=== PATIENT | male | born 1975 | race Caucasian/White ===

== ENCOUNTER 2016-08-11 12:43 | Inpatient (IN) ==
[2016-08-11] MEDS ORDERED: POTASSIUM CHLORIDE RIDER 10 MEQ in PREMIX 1 EACH IV PRN (13:16)
[2016-08-11] MEDS ORDERED: MAGNESIUM SULF RIDER 2 GM in PREMIX 1 EACH IV PRN (13:16)
[2016-08-11] MEDS ORDERED: ASPIRIN 325 MG TABLET PO ONE (13:16)
[2016-08-11] MEDS ORDERED: DIAZEPAM 5 MG TABLET PO ONE (13:16)
[2016-08-11] MEDS ORDERED: diphenhydrAMINE CAP 25 MG CAPSULE PO ONE (13:16)
[2016-08-11] MEDS ORDERED: DIAZEPAM 5 MG TABLET ONE (13:43)
[2016-08-11] MEDS ORDERED: diphenhydrAMINE CAP 25 MG CAPSULE ONE (13:43)
[2016-08-11] MEDS: SODIUM CHLORIDE 0.9% 1,000 ML IV SCH (13:46)
[2016-08-11 13:58] LABS: Basophils % 0.5 % (0.0-0.8); Eosinophils # 0.1 10*3/uL (0.0-0.87); Eosinophils % 1.2 % (0.00-10.9); Hemoglobin 14.8 GM/DL (14.0-18.0); Immature Granulocytes % 0.2 %; Immature Granulocytes Absolute 0.01 #; Lymphocytes # 1.5 10*3/uL (1.4-4.0); Lymphocytes % 25.4 % (21.2-54.2); Mean Corpuscular HGB Conc 33.6 GM/DL (32-36); Mean Corpuscular Hemoglobin 30 PG (27-34); Mean Corpuscular Volume 88.4 FL (87-102); Mean Platelet Volume 10.4 FL (9.6-12.0); Monocytes # 0.5 10*3/uL (0.11-0.8); Monocytes % 8.5 % (1.7-12.7); Neutrophils # 3.7 10*3/uL (1.4-7.4); Neutrophils % 64.2 % (38.7-73.9); Platelet Count 227 T/CUMM (130-400); Red Blood Count 4.98 MC/CUMM (3.8-5.5); Red Cell Distribution Width 13.5 % (9.3-17.3); White Blood Count 5.7 T/CUMM (4-12)
[2016-08-11 14:06] LABS: PT Patient Result 10.6 SECS
[2016-08-11 14:13] LABS: Calcium 8.8 MG/DL (8.5-10.1); Magnesium 2.2 MG/DL (1.8-2.4); Potassium 4.2 MMOL/L (3.5-5.1)
[2016-08-11] MEDS ORDERED: MIDAZOLAM 2 MG/2 ML VIAL ONE (14:29)
[2016-08-11] MEDS ORDERED: HYDROmorphone 2 MG/1 ML VIAL ONE (14:29)
[2016-08-11] MEDS ORDERED: LIDOCAINE 1% 20 ML VIAL ONE (14:29)
[2016-08-11] MEDS ORDERED: NITROGLYCERIN SL 0.4 MG TABLET SL PRN (15:29)
[2016-08-11] MEDS ORDERED: HYDROmorphone 2 MG/1 ML VIAL IV PRN (15:29)
[2016-08-11] MEDS ORDERED: ONDANSETRON 4 MG/2 ML VIAL IV PRN (15:29)
[2016-08-11] MEDS ORDERED: ZALEPLON 5 MG CAPSULE PO PRN (15:29)
--- NOTE | 2016-08-11 15:54 | Cardiac Catheterization ---
Date of Procedure:: 08/11/16 Post-op diagnosis: same Procedure: Procedures performed: 1. Left heart catheterization 2. Coronary angiography 3. Left ventriculography 4. Ascending aortogram 5. Right femoral arteriotomy closure with Angio-Seal device Brief clinical summary: Mr. Tipton 41-year-old with control hypertension who presented with at least 3 months of exertional angina and dyspnea on exertion with reduced ejection fraction noted at an outside hospital. Description of procedure: After obtaining informed consent, the right groin was prepped and draped in the usual sterile fashion. Next a short 6 [place] sheath was placed in the right femoral artery using a modified Seldinger technique, after the patient received IV sedation and local anesthetic. Next a JL4 catheter was advanced over a guidewire under fluoroscopic guidance, and was engaged to the left coronary artery after which angiography was performed in multiple views. This was then removed over a wire, and a JR4 catheter was advanced in similar fashion was engaged the right coronary artery after which angiography was performed in multiple views. Next a bent pigtail catheter was advanced into the left ventricle, where hemodynamic measurements were obtained, left ventriculography was performed. The pigtail was then pulled back above the aortic valve and ascending aortogram was performed I was able to visualize the sheath on a "carney down" shot which showed the sheath was inserted in the right common femoral artery in a vessel suitable for closure. Hemostasis was obtained with Angio-Seal device with no residual bleeding. He was transferred from the dental laboratory assistant in good condition without complication. Coronary angiography: Left main coronary artery is severely ectatic but without significant stenosis. The left anterior descending artery is also severely ectatic with a 95% complex mid stenosis and a large bifurcating first diagonal which has 90% stenosis and the largest subsegment. The diagonals also quite ectatic. There is a thin her second diagonal without significant disease. The LAD tapers and there is approximately 90% very distal LAD stenosis. The circumflex is occluded at the ostium and fills by left to left collaterals with apparently only 2 thin obtuse marginal branches being noted. Right coronary artery is the dominant vessel and is largest for extremity ectatic as well. It is a high takeoff of the vessel from the above the left cusp. There is a eccentric 70% mid stenosis. There is a fairly average PDA and first posterolateral with moderate irregularities. There is a larger somewhat ectatic PL2 branch which has 80-90% proximal stenosis. Left ventricular apical left ventricle appears to be borderline enlarged with mildly reduced overall ejection fraction of 40% with modest increased hypokinesis inferiorly. Ascending aortogram: The ascending aorta is perhaps slightly dilated but is anatomically unremarkable. There is only 1+ aortic regurgitation. Impression: 1. Mildly reduced overall LV systolic function with some increased inferior hypokinesis with overall ejection fraction is estimated to be 40% 2. Right dominant system 3. Extremely ectatic coronary arteries as detailed above with three-vessel disease as detailed above including but not limited to: A. 95% high mid LAD stenosis, and also 90% stenosis in the proximal portion of the large first diagonal branch, in discrete very distal 90% LAD stenosis B. Ostial circumflex occlusion with filling of the distal vessel via left to left collaterals (appears to be only 2 thin obtuse marginal branches) C. Extremely ectatic right coronary artery with high left takeoff, and 70% eccentric mid stenosis, as well as 80-90% proximal PL2 stenosis Recommendation discussion: I believe Mr. Chaudhari is best served with bypass surgery given his extremity ectatic vessels and his young age as well as his mildly reduced LV function. I discussed the case with Dr. Rutledge would make him to his service and tentatively will plan for surgery Sunday, as he is reviewed his study. I'll place him on high-dose Crestor, baby aspirin, and low-dose NADIA inhibitor and beta caryn therapy. Anesthesia: minimal conscious sedation Surgeon / Physician: Rc Wong Handle Sewer: other Estimated blood loss: minimal Specimens: none sent Condition: stable Disposition: floor - Medications / Follow-up
--- NOTE | 2016-08-11 16:11 | Cardiac Catheterization ---
Date of Procedure:: 08/11/16 Post-op diagnosis: same Anesthesia: minimal conscious sedation Surgeon / Physician: Rc Wong Sanitation Director: other Estimated blood loss: minimal Specimens: none sent Condition: stable Disposition: floor - Medications / Follow-up
[2016-08-11] MEDS: ASPIRIN CHEW 81 MG TABLET PO SCH (18:25)
[2016-08-11] MEDS: METOPROLOL SUCCINATE XL 25 MG TABLET PO SCH (18:25)
[2016-08-11] MEDS: LISINOPRIL 2.5 MG TABLET PO SCH (20:34)
[2016-08-11] MEDS: ROSUVASTATIN 20 MG TABLET PO SCH (20:34)
[2016-08-11] MEDS: FAMOTIDINE 20 MG TABLET PO SCH (20:35)
[2016-08-12] MEDS: SODIUM CHLORIDE 0.9% 1,000 ML IV SCH ×3 (00:37→10:49)
[2016-08-12 05:26] LABS: Basophils % 0.7 % (0.0-0.8); Eosinophils # 0.1 10*3/uL (0.0-0.87); Eosinophils % 1.3 % (0.00-10.9); Hematocrit 42.8 VOL% (42.0-52.0); Hemoglobin 14.6 GM/DL (14.0-18.0); Immature Granulocytes % 0.3 %; Immature Granulocytes Absolute 0.02 #; Lymphocytes # 1.6 10*3/uL (1.4-4.0); Lymphocytes % 26.1 % (21.2-54.2); Mean Corpuscular HGB Conc 34.1 GM/DL (32-36); Mean Corpuscular Hemoglobin 30 PG (27-34); Mean Corpuscular Volume 86.6 FL (87-102); Mean Platelet Volume 10.9 FL (9.6-12.0); Monocytes # 0.6 10*3/uL (0.11-0.8); Neutrophils # 3.8 10*3/uL (1.4-7.4); Neutrophils % 62.6 % (38.7-73.9); Platelet Count 205 T/CUMM (130-400); Red Blood Count 4.94 MC/CUMM (3.8-5.5); Red Cell Distribution Width 13.5 % (9.3-17.3); White Blood Count 6.1 T/CUMM (4-12)
[2016-08-12 05:57] LABS: Cholesterol 222 MG/DL (50-200); HDL Cholesterol 28 MG/DL (40-60); Risk Ratio 7.93; Triglycerides 172 MG/DL (2-150); VLDL CHOLESTEROL 34.4 MG/DL
[2016-08-12 06:00] LABS: Troponin I Only 0.129 NG/ML (0.00-0.045)
--- NOTE | 2016-08-12 08:39 | EKG Report ---
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
--- NOTE | 2016-08-12 08:40 | Cardiothoracic History & Phys ---
History of Present Illness Chief complaint: chest pain History of present illness: Mr. Cr is a 41 year old male who presented to Dr. Smiley for evaluation of chest discomfort which has been occurring with exertion and with increasing frequency. Mr. Cr underwent cardiac catheterization yesterday which demonstrated critical 3 vessel coronary disease with relatively well-preserved left ventricular function. He has been advised to have coronary bypass surgery and this is scheduled for 08/14/2015. Past medical history: Patient has a history of hypertension and a remote history of Hodgkin's lymphoma. Social history: Patient smokes cigarettes and drinks alcohol occasionally. Family history: Patient has a family history of diabetes mellitus and hypertension. Review of systems is noncontributory to the present illness. Physical examination: Patient is well-developed well-nourished white male in no acute distress. Examination of HEENT show the pupils are equal and react to light and extraocular motions are intact. The oropharynx is benign. Examination of the neck shows no bruits and there are no masses or thyromegaly. Examination chest is clear to percussion and auscultation. Examination of heart shows regular sinus rhythm and there are no murmurs. Examination of the abdomen shows that there are no masses or organomegaly and there is no tenderness. Examination extremities shows no cyanosis or edema. Neurological examination is grossly within normal limits. Assessment: Coronary artery disease. Plan: Coronary bypass surgery 08/14/2015. Home Medications Medication Instructions Recorded Confirmed Type Aspirin [Ecotrin] 81 mg PO DAILY 08/11/16 08/11/16 History Esomeprazole Magnesium [Nexium] 22.3 mg PO DAILY 08/11/16 08/11/16 History Levothyroxine Tab [Synthroid Tab] 50 mcg PO DAILY 08/11/16 08/11/16 History Lisinopril 20 mg PO DAILY 08/11/16 08/11/16 History [place]-3 Fatty Acids [Fish Oil 1,000 mg PO DAILY 08/11/16 08/11/16 History Concentrate] Tadalafil [Cialis] 5 mg PO DAILY 08/11/16 08/11/16 History Allergies Allergy/AdvReac Type Severity Reaction Status Date / Time No Known Allergies Allergy Verified 08/11/16 13:15 Medical,Surgical,& Family Hx - Medical History Cardio: History of: Hypertension Neurology: No history of: Seizures Endocrine: History of: Thyroid Disorder Gastrointestinal: History of: GERD Other: History of: Cancer - Surgical History Orthopedic Surgeries: Surgical HX of;: Orthopedic Surgery (RIGHT LEG SURGERY) - Social History Smoking Status: Never smoker Frequency of Alcohol Use: None Type of Drug Use: None Cardiology Physical Exam - Constitutional Vitals: Vital Signs Temp Pulse Resp BP Pulse Ox 98.2 F 64 20 149/90 98 08/12/16 08:00 08/12/16 08:00 08/12/16 08:00 08/12/16 08:00 08/12/16 08:00 Intake and Output 08/11/16 08/12/16 08/12/16 23:59 07:59 15:59 Intake Total 480 / 480 1120 / 1120 Output Total 350 / 350 Balance 480 / 480 770 / 770 Intake: IV 1000 / 1000 Ns 1,000 ml @ 100 mls/hr 1000 / 1000 IV .Q10H MONE Rx#: [id number] Oral 480 / 480 120 / 120 Output: Urine 350 / 350 Other: Voiding Method Toilet Urinal # Voids 2 Weight 96.162 kg Result/EKG - Labs CBC & BMP: 08/12/16 03:56 08/11/16 13:35 Labs: Laboratory Results - last 24 hr 08/11/16 08/11/16 08/11/16 13:35 13:35 13:35 WBC 5.7 RBC 4.98 Hgb 14.8 Hct 44.0 MCV 88.4 MCH 30 MCHC 33.6 RDW 13.5 Plt Count 227 MPV 10.4 Neut % (Auto) 64.2 Lymph % (Auto) 25.4 [place] % (Auto) 8.5 Eos % (Auto) 1.2 Baso % (Auto) 0.5 Neut # (Auto) 3.7 Lymph # (Auto) 1.5 [place] # (Auto) 0.5 Eos # (Auto) 0.1 Baso # (Auto) 0.0 Immature Gran % 0.2 Nucleated RBC % 0.0 Immature Gran # 0.01 Nucleated RBCs # 0.00 INR 1.0 PT Patient/Control Mix 10.6 Circ Anticoag PTT Sodium 143 Potassium 4.2 Chloride 108 H Carbon Dioxide 26 Anion Gap 13.2 BUN 14 Creatinine 1.10 GFR Calculation 106 BUN/Creatinine Ratio 12.00 Glucose 87 Calculated Osmolality 284.0 Calcium 8.8 Magnesium 2.2 Total Creatine Kinase CK-MB (CK-2) Troponin I Triglycerides Cholesterol LDL Cholesterol VLDL Cholesterol HDL Cholesterol Heart Disease Risk Ratio 08/11/16 08/12/16 08/12/16 13:35 03:56 03:56 WBC 6.1 RBC 4.94 Hgb 14.6 Hct 42.8 MCV 86.6 L MCH 30 MCHC 34.1 RDW 13.5 Plt Count 205 MPV 10.9 Neut % (Auto) 62.6 Lymph % (Auto) 26.1 [place] % (Auto) 9.0 Eos % (Auto) 1.3 Baso % (Auto) 0.7 Neut # (Auto) 3.8 Lymph # (Auto) 1.6 [place] # (Auto) 0.6 Eos # (Auto) 0.1 Baso # (Auto) 0.0 Immature Gran % 0.3 Nucleated RBC % 0.0 Immature Gran # 0.02 Nucleated RBCs # 0.00 INR PT Patient/Control Mix Circ Anticoag PTT 28.8 Sodium Potassium Chloride Carbon Dioxide Anion Gap BUN Creatinine GFR Calculation BUN/Creatinine Ratio Glucose Calculated Osmolality Calcium Magnesium Total Creatine Kinase 94 CK-MB (CK-2) < 1.0 Troponin I 0.129 H Triglycerides 172 H Cholesterol 222 H LDL Cholesterol 167.0 VLDL Cholesterol 34.4 HDL Cholesterol 28 L Heart Disease Risk Ratio 7.93
[2016-08-12] MEDS ORDERED: DEXTROSE 50% 25 GM/50 ML VIAL IV PRN (08:41)
[2016-08-12] MEDS ORDERED: GLUCAGON 1 MG VIAL IM PRN (08:41)
[2016-08-12] MEDS ORDERED: CHLORHEXIDINE 4% SOLN 118 ML BOTTLE TOP SCH (09:00)
[2016-08-12] MEDS ORDERED: SODIUM CHLORIDE 0.9% 1,000 ML IV SCH (09:00)
[2016-08-12] MEDS: ASPIRIN CHEW 81 MG TABLET PO SCH (09:27)
[2016-08-12] MEDS: LISINOPRIL 2.5 MG TABLET PO SCH ×2 (09:27→21:22)
[2016-08-12] MEDS: FAMOTIDINE 20 MG TABLET PO SCH ×2 (09:27→21:22)
[2016-08-12] MEDS: METOPROLOL SUCCINATE XL 25 MG TABLET PO SCH (09:28)
[2016-08-12] MEDS: CHLORHEXIDINE 0.12% ORAL RINSE 60 ML BOTTLE SWISH/SPIT SCH ×2 (09:28→21:21)
--- NOTE | 2016-08-12 09:38 | XRay Report ---
XR chest 2V Date: 08/12/2016 8:45 AM History: CAD Comparison: None Technique: PA and lateral chest Findings: The heart is normal in size. Minimal atelectasis at the lung bases with calcified granulomata/nodes. Unremarkable mediastinum and osseous structures. Impression: Old healed granulomatous disease with probable chronic scarring. Minimal atelectasis. PROCEDURE INTERPRETED AT [facility] DEPARTMENT OF RADIOLOGY Final Report Signed by: Dr. Cyndie Johnson
[2016-08-12 09:46] LABS: ABG HCO3 24.4 MMOL/L (20-26); ABG Oxygen Saturation 98.4 % (95-100); ABG PCO2 37.3 MM HG (35-48); ABG PH 7.419 (7.35-7.45); ABG TCO2 20.4 MMOL/L (23-27); Allen Test Positive; Pt O2 Delivery Device Room Air
[2016-08-12] MEDS: ROSUVASTATIN 20 MG TABLET PO SCH (21:22)
[2016-08-13 05:54] LABS: Albumin 3.4 G/DL (3.4-5.0); Bilirubin,Total 0.7 MG/DL (0.2-1.0); Calcium 8.7 MG/DL (8.5-10.1); Osmolality,Calculated 289.7 MOS/KG (273-304); Potassium 4.1 MMOL/L (3.5-5.1); Total Protein 6.6 G/DL (6.4-8.3)
--- NOTE | 2016-08-13 08:17 | Cardiothoracic Progress Note ---
Cardiothoracic Subjective Interval history: Patient is ready for bypass surgery Sunday morning. I will add low-dose tranxene for anxiety today. Exam (Progress Note) - Constitutional Vitals: Period Temp Pulse Resp BP Sys/Storm Pulse Ox Last 24 Hr 97.7 F-98 F 64-78 16-20 121-147/77-94 97-98 Result/EKG - Labs CBC & BMP: 08/12/16 03:56 08/13/16 04:16 Labs: Laboratory Results - last 24 hr 08/12/16 08/13/16 08/13/16 09:38 04:16 04:16 ABG pH 7.419 ABG pCO2 37.3 ABG pO2 104.0 H ABG HCO3 24.4 ABG Total CO2 20.4 L ABG O2 Saturation 98.4 ABG Base Excess 0.0 FiO2 21.00 Sodium 145 Potassium 4.1 Chloride 108 H Carbon Dioxide 26 Anion Gap 15.1 H BUN 17 Creatinine 1.20 GFR Calculation 96 BUN/Creatinine Ratio 14.00 Glucose 93 Calculated Osmolality 289.7 Calcium 8.7 Total Bilirubin 0.70 AST 10 ALT 25 Alkaline Phosphatase 127 H Total Protein 6.6 Albumin 3.4 Globulin 3.2 Albumin/Globulin Ratio 1.0 L Blood Type A POSITIVE Antibody Screen Negative Crossmatch See Detail 08/13/16 Unknown ABG pH ABG pCO2 ABG pO2 ABG HCO3 ABG Total CO2 ABG O2 Saturation ABG Base Excess FiO2 Sodium Potassium Chloride Carbon Dioxide Anion Gap BUN Creatinine GFR Calculation BUN/Creatinine Ratio Glucose Calculated Osmolality Calcium Total Bilirubin AST ALT Alkaline Phosphatase Total Protein Albumin Globulin Albumin/Globulin Ratio Blood Type A POSITIVE Antibody Screen Crossmatch Quality Measures - VTE Contraindication to Pharmacological VTE Prophylaxis: High Risk of Bleeding
[2016-08-13] MEDS ORDERED: CEFUROXIME INJ 1,500 MG in SODIUM CHLORIDE 0.9% 100 ML IV ONE (08:41)
[2016-08-13] MEDS: METOPROLOL SUCCINATE XL 25 MG TABLET PO SCH (08:42)
[2016-08-13] MEDS: ASPIRIN CHEW 81 MG TABLET PO SCH (08:43)
[2016-08-13] MEDS: CLORAZEPATE 3.75 MG TABLET PO SCH ×3 (08:43→21:21)
[2016-08-13] MEDS: LISINOPRIL 2.5 MG TABLET PO SCH ×2 (08:43→21:20)
[2016-08-13] MEDS: FAMOTIDINE 20 MG TABLET PO SCH ×2 (08:43→21:21)
[2016-08-13] MEDS: CHLORHEXIDINE 0.12% ORAL RINSE 60 ML BOTTLE SWISH/SPIT SCH ×2 (08:43→21:21)
[2016-08-13] MEDS: CHLORHEXIDINE 4% SOLN 118 ML BOTTLE TOP SCH ×2 (08:47→16:50)
[2016-08-13] MEDS ORDERED: ACETAMINOPHEN 325 MG TABLET PO PRN (12:32)
[2016-08-13] MEDS: ROSUVASTATIN 20 MG TABLET PO SCH (21:20)
[2016-08-14] MEDS: CHLORHEXIDINE 4% SOLN 118 ML BOTTLE TOP SCH (04:26)
[2016-08-14] MEDS ORDERED: PAPAVERINE 60 MG/2 ML VIAL ONE (04:43)
[2016-08-14] MEDS ORDERED: VANCOMYCIN 1,000 MG VIAL ONE (04:44)
[2016-08-14] MEDS ORDERED: PANTOPRAZOLE 40 MG TABLET PO ONE (05:30)
[2016-08-14] MEDS ORDERED: LORazepam 1 MG TABLET PO ONE (05:30)
[2016-08-14] MEDS ORDERED: CEFUROXIME INJ 1,500 MG in SODIUM CHLORIDE 0.9% 100 ML IV ONE (05:30)
[2016-08-14] MEDS ORDERED: VECURONIUM 10 MG VIAL IV ONE (06:42)
[2016-08-14] MEDS ORDERED: PHENYLEPHRINE DRIP 20 MG/250 ML PREMIX IV ONE (06:42)
[2016-08-14] MEDS ORDERED: NITROGLYCERIN DRIP 50 MG/250 ML BOTTLE IV ONE (06:42)
[2016-08-14] MEDS ORDERED: MINERAL OIL/PETROLATUM OPH OINT 3.5 GM TUBE ONE (06:42)
[2016-08-14] MEDS ORDERED: HEPARIN/NACL 0.9% 2 UNITS/ML 500 ML IV ONE (06:42)
[2016-08-14 07:41] LABS: ABG Base Excess -1.8 MMOL/L (-2.5-2.5); ABG HCO3 22.9 MMOL/L (20-26); ABG PH 7.409 (7.35-7.45); ABG TCO2 19.2 MMOL/L (23-27); Glucose Heart Surgery 107 MG/DL (74-106); Hematocrit Heart Surgery 41.7 PERCENT (42-52); Hemoglobin Heart Surgery 13.6 G/DL (14.0-18.0); Ionized Calcium Arterial 1.14 MMOL/L (1.21-1.46); PH Patient Temp Arterial 7.409; Patient Temperature 37 CELCIUS; Potassium Heart/CVR 3.9 MMOL/L (3.5-5.1); Sodium Heart/CVR 140 MMOL/L (135-145)
[2016-08-14 07:46] LABS: Apearance,Urine CLEAR (Clear); Bilirubin,Urine Negative (Negative); Blood, Urine Negative (Negative); Glucose,Urine (UA) Negative (Negative); Hyaline Casts,Urine 3 /LPF (0-3); Ketones,Urine Negative (Negative); Mucus,Urine Occasional /LPF (Occasional); Nitrite,Urine Negative (Negative); Protein,Urine Negative; RBC,Urine 1 /HPF (0-4); Urine Color Yellow (Yellow); Urine Urobilinogen < 2.0 EU/DL (0.2-1.0); WBC,Urine <1 /HPF (0-6)
--- NOTE | 2016-08-14 08:07 | Anesthesia ---
Anesthesia Procedures - Central Venous Insert Monitors Applied: pulse oximetry, EKG, BP cuff, oxygen via MSBT: pulse oximetry, EKG, BP cuff, oxygen via Procedure: after sterile technique was performed as outlined above, , ultrasound guidance was used to identify vessel, 18G introducer needle was passed into vessel under direct visualizatio, triple lumen catheter was passed over guidewire without difficulty, catheter sutured into place and the ports flushed with NS/hepflush, sterlie dressing applied including the antibiotic disc , vital signs were stable throughout procedure, no apparent complications were noted Ultrasound used: identify patency vessel, visualize needle entry to vessel Vein Cannulated: right internal juglar
--- NOTE | 2016-08-14 08:08 | Anesthesia ---
Anesthesia Procedures - Arterial Line Consent obtained arterial line: written consent Time out performed arterial line: Yes Size (Gauge): 20 Technique used arterial line: guide wire technique Post-Procedure: line sutured into place, dry sterile dressing placed Patient tolerated procedure arterial line: well Complications art line: none Site: radial (right radial, dr Elizabeth)
[2016-08-14 08:49] LABS: Hematocrit Heart Surgery 32.9 PERCENT (42-52); Hemoglobin Heart Surgery 10.7 G/DL (14.0-18.0); PCO2 Patient Temp Venous 35.8 MM HG; PH Patient Temp Venous 7.426; Potassium Heart/CVR 5.2 MMOL/L (3.5-5.1); VBG Base Excess -0.5 MEQ/L (0-4); VBG HCO3 23.7 MEQ/L (24-28); VBG Oxygen Saturation 78.8 %; VBG PCO2 41.4 MMHG (41-51); VBG PH 7.382; VBG PO2 43.2 MMHG (17-40)
[2016-08-14] MEDS ORDERED: SODIUM CHLORIDE 0.9% 1,000 ML IV SCH (09:00)
[2016-08-14 09:19] LABS: Hematocrit Heart Surgery 35.4 PERCENT (42-52); Hemoglobin Heart Surgery 11.5 G/DL (14.0-18.0); PCO2 Patient Temp Venous 34.8 MM HG; PH Patient Temp Venous 7.435; PO2 Patient Temp Venous 35.8 MM HG; VBG Base Excess -0.4 MEQ/L (0-4); VBG HCO3 23.8 MEQ/L (24-28); VBG Oxygen Saturation 82.7 %; VBG PCO2 42.2 MMHG (41-51); VBG PH 7.377; VBG PO2 47.2 MMHG (17-40)
[2016-08-14 09:20] LABS: Potassium Heart/CVR 6.6 MMOL/L (3.5-5.1)
[2016-08-14] MEDS ORDERED: SODIUM BICARBONATE 50 MEQ/50 ML VIAL IV ONE ×2 (09:50→10:28)
[2016-08-14] MEDS ORDERED: NITROPRUSSIDE 50 MG/2 ML VIAL ONE (09:50)
[2016-08-14] MEDS ORDERED: PHENYLEPHRINE DRIP 40 MG/250 ML PREMIX IV ONE (09:50)
[2016-08-14] MEDS ORDERED: CALCIUM CHLORIDE 1,000 MG/10 ML SYRINGE IV ONE (09:50)
[2016-08-14] MEDS ORDERED: POTASSIUM CHLORIDE RIDER 100 ML IV ONE (09:50)
[2016-08-14] MEDS ORDERED: ALBUMIN 5% 12.5 GM/250 ML VIAL IV ONE (09:51)
[2016-08-14 09:54] LABS: Hemoglobin Heart Surgery 12.2 G/DL (14.0-18.0); PCO2 Patient Temp Venous 36.7 MM HG; PH Patient Temp Venous 7.432; PO2 Patient Temp Venous 41.8 MM HG; VBG Base Excess -0.2 MEQ/L (0-4); VBG HCO3 24.1 MEQ/L (24-28); VBG Oxygen Saturation 79.8 %; VBG PCO2 38.3 MMHG (41-51); VBG PH 7.417; VBG PO2 44.9 MMHG (17-40)
[2016-08-14 09:56] LABS: Potassium Heart/CVR 6.5 MMOL/L (3.5-5.1)
[2016-08-14] MEDS ORDERED: ALBUMIN 25% 25 GM/100 ML VIAL IV ONE (10:28)
[2016-08-14] MEDS ORDERED: PROTAMINE SULFATE 250 MG/25 ML VIAL IV ONE (10:28)
[2016-08-14] MEDS ORDERED: DEXTROSE 5% KCL 20 MEQ 20 MEQ/1,000 ML BAG IV ONE (10:28)
[2016-08-14] MEDS ORDERED: HEPARIN 10,000 UNIT/10 ML VIAL ONE (10:28)
[2016-08-14] MEDS ORDERED: MAGNESIUM SULFATE 1 GM/2 ML VIAL ONE (10:28)
[2016-08-14] MEDS ORDERED: methylPREDNISolone SOD SUC 1,000 MG/8 ML VIAL ONE (10:28)
[2016-08-14] MEDS ORDERED: FUROSEMIDE 20 MG/2 ML VIAL ONE (10:29)
[2016-08-14] MEDS ORDERED: POTASSIUM CHLORIDE 20 MEQ/10 ML VIAL ONE (10:29)
[2016-08-14] MEDS ORDERED: MANNITOL 12.5 GM/50 ML VIAL IV ONE (10:29)
[2016-08-14] MEDS ORDERED: PROTAMINE SULFATE 50 MG/5 ML VIAL IV ONE ×3 (10:29→11:41)
--- NOTE | 2016-08-14 10:35 | Anesthesia ---
Anesthesia Procedures - Arterial Line Consent obtained arterial line: written consent Time out performed arterial line: Yes Size (Gauge): 20 Technique used arterial line: guide wire technique Post-Procedure: line sutured into place Patient tolerated procedure arterial line: well Complications art line: none Site: right
[2016-08-14 10:41] LABS: ABG Base Excess -2.9 MMOL/L (-2.5-2.5); ABG Oxygen Saturation 97.8 % (95-100); ABG PCO2 38.9 MM HG (35-48); ABG PH 7.363 (7.35-7.45); ABG PO2 99.5 MM HG (80-95); ABG TCO2 19.7 MMOL/L (23-27); Glucose Heart Surgery 149 MG/DL (74-106); Hematocrit Heart Surgery 36.8 PERCENT (42-52); PCO2 Patient Temp Arterial 38.9 MMHG; PH Patient Temp Arterial 7.363; PO2 Patient Temp Arterial 99.5 MM HG; Patient Temperature 37 CELCIUS; Potassium Heart/CVR 4.2 MMOL/L (3.5-5.1); Sodium Heart/CVR 138 MMOL/L (135-145)
[2016-08-14] MEDS ORDERED: DEXTROSE 50% 25 GM/50 ML VIAL IV PRN ×2 (11:29)
[2016-08-14] MEDS ORDERED: MAGNESIUM SULF RIDER 4 GM in PREMIX 1 EACH IV PRN (11:29)
[2016-08-14] MEDS ORDERED: NITROPRUSSIDE 100 MG in DEXTROSE 5% 250 ML IV PRN (11:29)
[2016-08-14] MEDS ORDERED: ONDANSETRON 4 MG/2 ML VIAL IV PRN (11:29)
[2016-08-14] MEDS ORDERED: PHENYLEPHRINE DRIP 40 MG/250 ML PREMIX IV PRN (11:29)
[2016-08-14] MEDS ORDERED: MAGNESIUM SULF RIDER 2 GM in PREMIX 1 EACH IV PRN (11:29)
[2016-08-14] MEDS ORDERED: VECURONIUM 10 MG VIAL IV PRN ×2 (11:29)
[2016-08-14] MEDS ORDERED: POTASSIUM CHLORIDE RIDER 10 MEQ in PREMIX 1 EACH IV PRN (11:29)
[2016-08-14] MEDS ORDERED: MIDAZOLAM 2 MG/2 ML VIAL IV PRN (11:29)
[2016-08-14] MEDS ORDERED: LACTATED RINGERS 250 ML IV PRN (11:29)
[2016-08-14] MEDS ORDERED: INSULIN REGULAR 100 UNIT/ML IV ONE (11:29)
[2016-08-14] MEDS ORDERED: ACETAMINOPHEN 650 MG SUPP RECTAL PRN (11:29)
[2016-08-14] MEDS ORDERED: MORPHINE 10 MG/1 ML VIAL IV PRN (11:29)
[2016-08-14] MEDS ORDERED: INSULIN REGULAR 100 UNIT/ML IV PRN (11:29)
[2016-08-14] MEDS ORDERED: MIDAZOLAM 10 MG/2 ML VIAL IV PRN (11:29)
[2016-08-14] MEDS ORDERED: CALCIUM CHLORIDE 1,000 MG/10 ML SYRINGE IV PRN (11:29)
[2016-08-14] MEDS ORDERED: MORPHINE 2 MG/1 ML SYRINGE IV PRN (11:29)
[2016-08-14] MEDS ORDERED: INSULIN REGULAR DRIP 100 ML IV SCH (11:30)
[2016-08-14] MEDS ORDERED: SODIUM CHLORIDE 0.45% 1,000 ML IV SCH ×2 (11:30)
[2016-08-14] MEDS ORDERED: SUFentanil 250 MCG/5 ML AMP ONE (11:35)
[2016-08-14] MEDS ORDERED: SEVOFLURANE 1 UNIT/15 MINUTE INH ONE (11:35)
[2016-08-14] MEDS ORDERED: AMINOCAPROIC ACID 5,000 MG/20 ML VIAL IV ONE (11:36)
--- NOTE | 2016-08-14 11:36 | Operative Note ---
Date of procedure: 08/14/16 Pre-op diagnosis: coronary artery disease Post-op diagnosis: same Procedure: Procedure: Coronary bypass grafting 4 with the left internal mammary grafted anterior descending coronary artery and saphenous vein grafts to the diagonal circumflex marginal and right coronary arteries. Findings: Patient is a 41-year-old man with substernal chest discomfort and was found to have critical 3 vessel coronary disease at cardiac catheterization. The time of surgery left ventricular function was noted to be essentially within normal limits and grafts were placed to the above-noted vessels with saphenous vein grafts used for the diagonal circumflex marginal and right coronary arteries and an internal mammary graft to the anterior descending coronary artery. All distal vessels were of adequate size and showed moderate disease at the site of the anastomoses. Patient tolerated the procedure well was returned recovery in satisfactory condition. Procedure: Patient was brought to the operating room placed on the operating table in the supine position. After satisfactory induction of general anesthesia the greater saphenous vein was harvested from each lower leg and prepared as an arterial graft. Incisions in the leg were closed with 3-0 subcutaneous Monopril and 3-0 subcuticular Monocryl. A standard sternotomy incision was also made and the sternum was divided and the heart suspended in a pericardial cradle. Left internal mammary artery was dissected free and prepared as an arterial graft. Patient was prepared for cardiopulmonary bypass with systemic heparinization and cannulation of the ascending aorta and right atrium. Cardiopulmonary bypass was begun and the aorta was crossclamped and the heart arrested with cardioplegia solution injected into the aortic root. Heart was protected during the period of crossclamping with topical saline slush. Distal anastomoses were constructed as noted above. Following the completion of these anastomoses the aorta was unclamped reestablished and cardiac action. Proximal anastomoses were constructed between the ascending aorta and the inflow and so the saphenous vein graft using 6-0 Prolene. Following completion of these anastomoses the patient was weaned from cardiopulmonary bypass without difficulty and heparin effect reversed with protamine and decannulation carried out with the defects in the ascending aorta and right atrium closed with 3-0 Prolene. The operative field was inspected for hemostasis and when this was considered adequate incision was closed with interrupted stainless steel wire and the sternum 0 Monopril and the presternal fascia and 3-0 Monocryl in the subcuticular position in the skin. Chest tubes were left in the left hemithorax and 2 chest tubes left in the anterior mediastinum and all were brought out through separate stab incisions. Sterile dressings were applied and the patient was returned recovery in satisfactory condition. Surgeon / Physician: Waylon Rutledge Estimated blood loss: other (unable to determine because of cardiopulmonary bypass) Condition: stable Disposition: ICU Results - Labs CBC & BMP: 08/14/16 10:38 08/13/16 04:16 Discharge Plan - Discharge Medications No Action Esomeprazole Magnesium [Nexium] 22.3 mg PO DAILY [place]-3 Fatty Acids [Fish Oil Concentrate] 1,000 mg PO DAILY Tadalafil [Cialis] 5 mg PO DAILY Lisinopril 20 mg PO DAILY Aspirin [Ecotrin] 81 mg PO DAILY Levothyroxine Tab [Synthroid Tab] 50 mcg PO DAILY - Follow Up or Referral - Forms/Instructions
[2016-08-14 11:48] LABS: ABG Base Excess -1.6 MMOL/L (-2.5-2.5); ABG HCO3 23.1 MMOL/L (20-26); ABG Oxygen Saturation 98.2 % (95-100); ABG PCO2 33.9 MM HG (35-48); ABG PH 7.423 (7.35-7.45); ABG TCO2 19.2 MMOL/L (23-27); Basophils % 0.2 % (0.0-0.8); Eosinophils % 0.2 % (0.00-10.9); Glucose Heart Surgery 126 MG/DL (74-106); Hematocrit 39.6 VOL% (42.0-52.0); Hematocrit Heart Surgery 41.1 PERCENT (42-52); Hemoglobin 13.2 GM/DL (14.0-18.0); Hemoglobin Heart Surgery 13.4 G/DL (14.0-18.0); Immature Granulocytes % 0.6 %; Immature Granulocytes Absolute 0.08 #; Lymphocytes # 0.8 10*3/uL (1.4-4.0); Lymphocytes % 5.9 % (21.2-54.2); Mean Corpuscular HGB Conc 33.3 GM/DL (32-36); Mean Corpuscular Hemoglobin 29 PG (27-34); Mean Corpuscular Volume 88.2 FL (87-102); Monocytes # 0.7 10*3/uL (0.11-0.8); Monocytes % 5.7 % (1.7-12.7); Neutrophils # 11.2 10*3/uL (1.4-7.4); Neutrophils % 87.4 % (38.7-73.9); Platelet Count 166 T/CUMM (130-400); Potassium Heart/CVR 3.8 MMOL/L (3.5-5.1); Red Blood Count 4.49 MC/CUMM (3.8-5.5); Red Cell Distribution Width 13.4 % (9.3-17.3); White Blood Count 12.8 T/CUMM (4-12)
[2016-08-14 11:57] LABS: INR 1.1; PT Patient Result 11.6 SECS; Partial Thromboplastin Time 30.1 SECS (0-40)
[2016-08-14] MEDS: POTASSIUM CHLORIDE RIDER 20 MEQ in PREMIX 1 EACH IV PRN (12:00)
[2016-08-14] MEDS: LACTATED RINGERS 1,000 ML IV PRN ×3 (12:15→15:53)
[2016-08-14 12:20] LABS: Albumin 3.3 G/DL (3.4-5.0); Magnesium 2.6 MG/DL (1.8-2.4); Osmolality,Calculated 296.3 MOS/KG (273-304); Total Protein 5.9 G/DL (6.4-8.3)
[2016-08-14 12:41] LABS: CKMB % 8.4 %
[2016-08-14 12:45] LABS: Troponin I Only 7.31 NG/ML (0.00-0.045)
--- NOTE | 2016-08-14 12:54 | XRay Report ---
XR chest 1V portable Indication: Line placement. Chest one view: Comparison 2 days ago. Endotracheal tube terminates 3 cm cephalad of the monika. Mediastinal and left basilar chest tubes, [place] catheter tip projecting over the right pulmonary artery, and NG tube are now in the [id number]. Heart size is normal. Atelectasis of the perihilar lungs noted. No pneumothorax. Impression: Lines and tubes as described. PROCEDURE INTERPRETED AT [facility] DEPARTMENT OF RADIOLOGY Final Report Signed by: Gordon Calvillo M.D.
[2016-08-14] MEDS: ALBUMIN 5% 12.5 GM in PREMIX 1 EACH IV PRN ×5 (12:55→20:45)
[2016-08-14] MEDS: KETOROLAC 30 MG/1 ML VIAL IV SCH ×3 (12:58→23:48)
[2016-08-14 13:56] LABS: ABG Base Excess -2.2 MMOL/L (-2.5-2.5); ABG HCO3 22.6 MMOL/L (20-26); ABG Oxygen Saturation 98.7 % (95-100); ABG PCO2 32.8 MM HG (35-48); ABG PH 7.423 (7.35-7.45); ABG TCO2 18.8 MMOL/L (23-27); Glucose Heart Surgery 157 MG/DL (74-106); Hematocrit Heart Surgery 38.5 PERCENT (42-52); Hemoglobin Heart Surgery 12.5 G/DL (14.0-18.0); Potassium Heart/CVR 4.6 MMOL/L (3.5-5.1)
[2016-08-14 16:32] LABS: ABG Base Excess -1.1 MMOL/L (-2.5-2.5); ABG HCO3 22.7 MMOL/L (20-26); ABG Oxygen Saturation 96.7 % (95-100); ABG PCO2 34.8 MM HG (35-48); ABG PH 7.432 (7.35-7.45); ABG PO2 93.4 MM HG (80-95); ABG TCO2 23.8 MMOL/L (23-27); Glucose Heart Surgery 166 MG/DL (74-106); Hemoglobin Heart Surgery 12.5 G/DL (14.0-18.0); Potassium Heart/CVR 4.5 MMOL/L (3.5-5.1)
[2016-08-14] MEDS: ASPIRIN CHEW 81 MG TABLET PO SCH (16:44)
[2016-08-14] MEDS: METOPROLOL SUCCINATE XL 25 MG TABLET PO SCH (16:45)
[2016-08-14] MEDS: CHLORHEXIDINE 0.12% ORAL RINSE 60 ML BOTTLE SWISH/SPIT SCH ×2 (16:45→21:21)
[2016-08-14] MEDS: LISINOPRIL 2.5 MG TABLET PO SCH (16:45)
[2016-08-14] MEDS: CLORAZEPATE 3.75 MG TABLET PO SCH (16:45)
[2016-08-14] MEDS: FAMOTIDINE 20 MG TABLET PO SCH (16:46)
[2016-08-14 18:30] LABS: ABG Base Excess -2.7 MMOL/L (-2.5-2.5); ABG HCO3 22.2 MMOL/L (20-26); ABG Oxygen Saturation 98.9 % (95-100); ABG PCO2 35.5 MM HG (35-48); ABG PH 7.393 (7.35-7.45); ABG TCO2 19.4 MMOL/L (23-27); Glucose Heart Surgery 168 MG/DL (74-106); Hematocrit Heart Surgery 34.9 PERCENT (42-52); Hemoglobin Heart Surgery 11.3 G/DL (14.0-18.0); Potassium Heart/CVR 4.4 MMOL/L (3.5-5.1)
[2016-08-14] MEDS: CEFUROXIME INJ 1,500 MG in SODIUM CHLORIDE 0.9% 100 ML IV SCH (19:11)
[2016-08-14 19:40] LABS: ABG Base Excess -4.1 MMOL/L (-2.5-2.5); ABG Oxygen Saturation 98.1 % (95-100); ABG PCO2 47.1 MM HG (35-48); ABG PH 7.291 (7.35-7.45); ABG TCO2 20.5 MMOL/L (23-27); Glucose Heart Surgery 179 MG/DL (74-106); Hematocrit Heart Surgery 36.2 PERCENT (42-52); Hemoglobin Heart Surgery 11.7 G/DL (14.0-18.0); Potassium Heart/CVR 4.2 MMOL/L (3.5-5.1)
[2016-08-14 20:23] LABS: CKMB % 4.6 %
[2016-08-14 20:27] LABS: Troponin I Only 12.1 NG/ML (0.00-0.045)
[2016-08-14] MEDS ORDERED: FUROSEMIDE 40 MG/4 ML VIAL IV ONE (21:47)
[2016-08-15 01:00] LABS: ABG HCO3 22.7 MMOL/L (20-26); ABG Oxygen Saturation 97.5 % (95-100); ABG PCO2 46.8 MM HG (35-48); ABG PH 7.323 (7.35-7.45); ABG PO2 94.6 MM HG (80-95); ABG TCO2 21.9 MMOL/L (23-27); Glucose Heart Surgery 142 MG/DL (74-106); Hematocrit Heart Surgery 35.2 PERCENT (42-52); Hemoglobin Heart Surgery 11.4 G/DL (14.0-18.0); Potassium Heart/CVR 4.1 MMOL/L (3.5-5.1)
[2016-08-15] MEDS: POTASSIUM CHLORIDE RIDER 20 MEQ in PREMIX 1 EACH IV PRN ×2 (01:15→04:51)
[2016-08-15 04:20] LABS: ABG HCO3 23.5 MMOL/L (20-26); ABG PCO2 44.4 MM HG (35-48); ABG PH 7.353 (7.35-7.45); ABG PO2 82.1 MM HG (80-95); ABG TCO2 22.3 MMOL/L (23-27); Glucose Heart Surgery 123 MG/DL (74-106); Hematocrit Heart Surgery 33.5 PERCENT (42-52); Hemoglobin Heart Surgery 10.9 G/DL (14.0-18.0); Potassium Heart/CVR 4.2 MMOL/L (3.5-5.1)
[2016-08-15 04:29] LABS: Basophils % 0.1 % (0.0-0.8); Hematocrit 32.4 VOL% (42.0-52.0); Hemoglobin 10.7 GM/DL (14.0-18.0); Immature Granulocytes % 0.6 %; Immature Granulocytes Absolute 0.09 #; Lymphocytes # 0.6 10*3/uL (1.4-4.0); Lymphocytes % 4.2 % (21.2-54.2); Mean Corpuscular Hemoglobin 30 PG (27-34); Mean Corpuscular Volume 90.3 FL (87-102); Mean Platelet Volume 10.3 FL (9.6-12.0); Monocytes # 0.6 10*3/uL (0.11-0.8); Monocytes % 4.1 % (1.7-12.7); Neutrophils # 13.2 10*3/uL (1.4-7.4); Platelet Count 170 T/CUMM (130-400); Red Blood Count 3.59 MC/CUMM (3.8-5.5); Red Cell Distribution Width 14.1 % (9.3-17.3); White Blood Count 14.5 T/CUMM (4-12)
[2016-08-15 05:03] LABS: Band Neutrophils 1 % (0-10); Hypochromasia 1+; Lymphocytes 1 % (20-55); Platelet Estimate Normal; Segmented Neutrophils 93 % (50-85); Total Cells Counted 100
[2016-08-15 05:15] LABS: Albumin 3.9 G/DL (3.4-5.0); Bilirubin,Direct 0.3 MG/DL (0.0-0.20); Bilirubin,Total 0.9 MG/DL (0.2-1.0); CKMB % 4.3 %; Calcium 8.9 MG/DL (8.5-10.1); Magnesium 2.2 MG/DL (1.8-2.4); Osmolality,Calculated 293.6 MOS/KG (273-304); Potassium 4.4 MMOL/L (3.5-5.1); Total Protein 6.2 G/DL (6.4-8.3)
[2016-08-15 05:17] LABS: Troponin I Only 13.3 NG/ML (0.00-0.045)
[2016-08-15] MEDS: KETOROLAC 30 MG/1 ML VIAL IV SCH ×4 (05:21→17:45)
[2016-08-15] MEDS: ALBUMIN 5% 12.5 GM in PREMIX 1 EACH IV PRN (05:41)
--- NOTE | 2016-08-15 06:09 | Cardiothoracic Progress Note ---
Cardiothoracic Subjective Interval history: Patient is awake alert and extubated. He was stable through the night and remained in sinus rhythm with stable blood pressure. Blood gases are satisfactory postextubation. Urine output has been good and her renal function looks okay. He has minimal drainage from his chest tubes and I'm going to discontinue his chest tubes this morning. Hopefully we can transfer him to telemetry later this morning. Overall his progress looks satisfactory. Exam (Progress Note) - Constitutional Vitals: Period Temp Pulse Resp BP Sys/Storm Pulse Ox Last 24 Hr 96.4 F-98.7 F 79-94 10-19 84-146/55-92 95-99 Result/EKG - Labs CBC & BMP: 08/15/16 04:11 08/15/16 04:11 Labs: Laboratory Results - last 24 hr 08/13/16 08/14/16 08/14/16 04:16 06:55 07:30 WBC RBC Hgb Hct MCV MCH MCHC RDW Plt Count 98 L D MPV Neut % (Auto) Lymph % (Auto) [place] % (Auto) Eos % (Auto) Baso % (Auto) Neut # (Auto) Lymph # (Auto) [place] # (Auto) Eos # (Auto) Baso # (Auto) Total Counted Immature Gran % Nucleated RBC % Immature Gran # Segmented Neutrophils Band Neutrophils Lymphocytes Monocytes Nucleated RBCs # Platelet Estimate Hypochromasia INR PT Patient/Control Mix Circ Anticoag PTT Patient Temperature ABG pH ABG pH at Pt Temp ABG pCO2 ABG pCO2 at Pt Temp ABG pO2 ABG pO2 at Pt Temp ABG HCO3 ABG Total CO2 ABG O2 Saturation ABG Base Excess ABG Sodium VBG pH VBG pCO2 VBG pO2 VBG HCO3 VBG Total CO2 VBG O2 Saturation VBG Base Excess Hemoglobin Hematocrit Potassium Glucose Ionized Calcium FiO2 Sodium Chloride Carbon Dioxide Anion Gap BUN Creatinine GFR Calculation BUN/Creatinine Ratio Calculated Osmolality Calcium Venous Ioniz Calcium Magnesium Total Bilirubin Direct Bilirubin AST ALT Alkaline Phosphatase Total Creatine Kinase CK-MB (CK-2) CK and CKMB Interp Troponin I Total Protein Albumin Globulin Albumin/Globulin Ratio Urine Color Yellow Urine Appearance Clear Urine pH 5.0 Ur Specific [place] 1.020 Urine Protein Negative Urine Glucose (UA) Negative Urine Ketones Negative Urine Blood Negative Urine Nitrate Negative Urine Bilirubin Negative Urine Urobilinogen < 2.0 H Urine Leukocytes Negative Urine RBC 1 Urine WBC <1 Hyaline Casts 3 Urine Mucus Occasional Ur Culture Indicated? Not indicated Blood Type A POSITIVE Antibody Screen Negative Crossmatch See Detail 08/14/16 08/14/16 08/14/16 07:30 08:45 09:15 WBC RBC Hgb Hct MCV MCH MCHC RDW Plt Count MPV Neut % (Auto) Lymph % (Auto) [place] % (Auto) Eos % (Auto) Baso % (Auto) Neut # (Auto) Lymph # (Auto) [place] # (Auto) Eos # (Auto) Baso # (Auto) Total Counted Immature Gran % Nucleated RBC % Immature Gran # Segmented Neutrophils Band Neutrophils Lymphocytes Monocytes Nucleated RBCs # Platelet Estimate Hypochromasia INR PT Patient/Control Mix Circ Anticoag PTT Patient Temperature 37 34 33 ABG pH 7.409 ABG pH at Pt Temp 7.409 7.426 7.435 ABG pCO2 35.0 ABG pCO2 at Pt Temp 35.0 35.8 34.8 ABG pO2 387.0 H ABG pO2 at Pt Temp 387.0 35.0 35.8 ABG HCO3 22.9 ABG Total CO2 19.2 L ABG O2 Saturation 100.0 ABG Base Excess -1.8 ABG Sodium 140 136 133 L VBG pH 7.382 7.377 VBG pCO2 41.4 42.2 VBG pO2 43.2 H 47.2 H VBG HCO3 23.7 L 23.8 L VBG Total CO2 22.3 22.3 VBG O2 Saturation 78.8 82.7 VBG Base Excess -0.5 L -0.4 L Hemoglobin 13.6 L 10.7 L D 11.5 L Hematocrit 41.7 L 32.9 L 35.4 L Potassium 3.9 5.2 H 6.6 H* Glucose 107 H 155 H 224 H Ionized Calcium 1.14 L FiO2 80.00 80.00 Sodium Chloride Carbon Dioxide Anion Gap BUN Creatinine GFR Calculation BUN/Creatinine Ratio Calculated Osmolality Calcium Venous Ioniz Calcium 1.00 L 1.05 L Magnesium Total Bilirubin Direct Bilirubin AST ALT Alkaline Phosphatase Total Creatine Kinase CK-MB (CK-2) CK and CKMB Interp Troponin I Total Protein Albumin Globulin Albumin/Globulin Ratio Urine Color Urine Appearance Urine pH Ur Specific [place] Urine Protein Urine Glucose (UA) Urine Ketones Urine Blood Urine Nitrate Urine Bilirubin Urine Urobilinogen Urine Leukocytes Urine RBC Urine WBC Hyaline Casts Urine Mucus Ur Culture Indicated? Blood Type Antibody Screen Crossmatch 08/14/16 08/14/16 08/14/16 09:45 10:38 10:38 WBC RBC Hgb Hct MCV MCH MCHC RDW Plt Count 153 D MPV Neut % (Auto) Lymph % (Auto) [place] % (Auto) Eos % (Auto) Baso % (Auto) Neut # (Auto) Lymph # (Auto) [place] # (Auto) Eos # (Auto) Baso # (Auto) Total Counted Immature Gran % Nucleated RBC % Immature Gran # Segmented Neutrophils Band Neutrophils Lymphocytes Monocytes Nucleated RBCs # Platelet Estimate Hypochromasia INR PT Patient/Control Mix Circ Anticoag PTT Patient Temperature 36 37 ABG pH 7.363 ABG pH at Pt Temp 7.432 7.363 ABG pCO2 38.9 ABG pCO2 at Pt Temp 36.7 38.9 ABG pO2 99.5 H ABG pO2 at Pt Temp 41.8 99.5 ABG HCO3 22.0 ABG Total CO2 19.7 L ABG O2 Saturation 97.8 ABG Base Excess -2.9 L ABG Sodium 130 L 138 VBG pH 7.417 VBG pCO2 38.3 L VBG pO2 44.9 H VBG HCO3 24.1 VBG Total CO2 25.3 VBG O2 Saturation 79.8 VBG Base Excess -0.2 L Hemoglobin 12.2 L 12.0 L Hematocrit 36.0 L 36.8 L Potassium 6.5 H* 4.2 Glucose 194 H 149 H Ionized Calcium 1.30 FiO2 80.00 Sodium Chloride Carbon Dioxide Anion Gap BUN Creatinine GFR Calculation BUN/Creatinine Ratio Calculated Osmolality Calcium Venous Ioniz Calcium 0.95 Magnesium Total Bilirubin Direct Bilirubin AST ALT Alkaline Phosphatase Total Creatine Kinase CK-MB (CK-2) CK and CKMB Interp Troponin I Total Protein Albumin Globulin Albumin/Globulin Ratio Urine Color Urine Appearance Urine pH Ur Specific [place] Urine Protein Urine Glucose (UA) Urine Ketones Urine Blood Urine Nitrate Urine Bilirubin Urine Urobilinogen Urine Leukocytes Urine RBC Urine WBC Hyaline Casts Urine Mucus Ur Culture Indicated? Blood Type Antibody Screen Crossmatch 08/14/16 08/14/16 08/14/16 11:40 11:40 11:40 WBC 12.8 H D RBC 4.49 Hgb 13.2 L Hct 39.6 L MCV 88.2 MCH 29 MCHC 33.3 RDW 13.4 Plt Count 166 MPV 10.0 Neut % (Auto) 87.4 H Lymph % (Auto) 5.9 L [place] % (Auto) 5.7 Eos % (Auto) 0.2 Baso % (Auto) 0.2 Neut # (Auto) 11.2 H Lymph # (Auto) 0.8 L [place] # (Auto) 0.7 Eos # (Auto) 0.0 Baso # (Auto) 0.0 Total Counted Immature Gran % 0.6 Nucleated RBC % 0.0 Immature Gran # 0.08 Segmented Neutrophils Band Neutrophils Lymphocytes Monocytes Nucleated RBCs # 0.00 Platelet Estimate Hypochromasia INR 1.1 PT Patient/Control Mix 11.6 Circ Anticoag PTT 30.1 Patient Temperature ABG pH ABG pH at Pt Temp ABG pCO2 ABG pCO2 at Pt Temp ABG pO2 ABG pO2 at Pt Temp ABG HCO3 ABG Total CO2 ABG O2 Saturation ABG Base Excess ABG Sodium VBG pH VBG pCO2 VBG pO2 VBG HCO3 VBG Total CO2 VBG O2 Saturation VBG Base Excess Hemoglobin Hematocrit Potassium 4.0 Glucose 125 H Ionized Calcium FiO2 Sodium 148 H Chloride 114 H Carbon Dioxide 23 Anion Gap 15.0 BUN 19 H Creatinine 1.30 GFR Calculation 86 BUN/Creatinine Ratio 14.00 Calculated Osmolality 296.3 Calcium 10.0 Venous Ioniz Calcium Magnesium 2.6 H Total Bilirubin 1.00 Direct Bilirubin AST 34 ALT 22 Alkaline Phosphatase 99 Total Creatine Kinase CK-MB (CK-2) CK and CKMB Interp Troponin I Total Protein 5.9 L Albumin 3.3 L Globulin 2.6 Albumin/Globulin Ratio 1.2 Urine Color Urine Appearance Urine pH Ur Specific [place] Urine Protein Urine Glucose (UA) Urine Ketones Urine Blood Urine Nitrate Urine Bilirubin Urine Urobilinogen Urine Leukocytes Urine RBC Urine WBC Hyaline Casts Urine Mucus Ur Culture Indicated? Blood Type Antibody Screen Crossmatch 08/14/16 08/14/16 08/14/16 11:40 11:43 13:47 WBC RBC Hgb Hct MCV MCH MCHC RDW Plt Count MPV Neut % (Auto) Lymph % (Auto) [place] % (Auto) Eos % (Auto) Baso % (Auto) Neut # (Auto) Lymph # (Auto) [place] # (Auto) Eos # (Auto) Baso # (Auto) Total Counted Immature Gran % Nucleated RBC % Immature Gran # Segmented Neutrophils Band Neutrophils Lymphocytes Monocytes Nucleated RBCs # Platelet Estimate Hypochromasia INR PT Patient/Control Mix Circ Anticoag PTT Patient Temperature ABG pH 7.423 7.423 ABG pH at Pt Temp ABG pCO2 33.9 L 32.8 L ABG pCO2 at Pt Temp ABG pO2 101.0 H 114.0 H ABG pO2 at Pt Temp ABG HCO3 23.1 22.6 ABG Total CO2 19.2 L 18.8 L ABG O2 Saturation 98.2 98.7 ABG Base Excess -1.6 -2.2 ABG Sodium VBG pH VBG pCO2 VBG pO2 VBG HCO3 VBG Total CO2 VBG O2 Saturation VBG Base Excess Hemoglobin 13.4 L 12.5 L Hematocrit 41.1 L 38.5 L Potassium 3.8 4.6 Glucose 126 H 157 H Ionized Calcium FiO2 Sodium Chloride Carbon Dioxide Anion Gap BUN Creatinine GFR Calculation BUN/Creatinine Ratio Calculated Osmolality Calcium Venous Ioniz Calcium Magnesium Total Bilirubin Direct Bilirubin AST ALT Alkaline Phosphatase Total Creatine Kinase 365 H D CK-MB (CK-2) 30.7 H D CK and CKMB Interp 8.4 Troponin I 7.310 H D Total Protein Albumin Globulin Albumin/Globulin Ratio Urine Color Urine Appearance Urine pH Ur Specific [place] Urine Protein Urine Glucose (UA) Urine Ketones Urine Blood Urine Nitrate Urine Bilirubin Urine Urobilinogen Urine Leukocytes Urine RBC Urine WBC Hyaline Casts Urine Mucus Ur Culture Indicated? Blood Type Antibody Screen Crossmatch 08/14/16 08/14/16 08/14/16 16:20 18:26 19:34 WBC RBC Hgb Hct MCV MCH MCHC RDW Plt Count MPV Neut % (Auto) Lymph % (Auto) [place] % (Auto) Eos % (Auto) Baso % (Auto) Neut # (Auto) Lymph # (Auto) [place] # (Auto) Eos # (Auto) Baso # (Auto) Total Counted Immature Gran % Nucleated RBC % Immature Gran # Segmented Neutrophils Band Neutrophils Lymphocytes Monocytes Nucleated RBCs # Platelet Estimate Hypochromasia INR PT Patient/Control Mix Circ Anticoag PTT Patient Temperature ABG pH 7.432 7.393 ABG pH at Pt Temp ABG pCO2 34.8 L 35.5 ABG pCO2 at Pt Temp ABG pO2 93.4 121.0 H ABG pO2 at Pt Temp ABG HCO3 22.7 22.2 ABG Total CO2 23.8 19.4 L ABG O2 Saturation 96.7 98.9 ABG Base Excess -1.1 -2.7 L ABG Sodium VBG pH VBG pCO2 VBG pO2 VBG HCO3 VBG Total CO2 VBG O2 Saturation VBG Base Excess Hemoglobin 12.5 L 11.3 L Hematocrit 37.0 L 34.9 L Potassium 4.5 4.4 Glucose 166 H 168 H Ionized Calcium FiO2 Sodium Chloride Carbon Dioxide Anion Gap BUN Creatinine GFR Calculation BUN/Creatinine Ratio Calculated Osmolality Calcium Venous Ioniz Calcium Magnesium Total Bilirubin Direct Bilirubin AST ALT Alkaline Phosphatase Total Creatine Kinase 703 H D CK-MB (CK-2) 32.0 H CK and CKMB Interp 4.6 Troponin I 12.100 H D Total Protein Albumin Globulin Albumin/Globulin Ratio Urine Color Urine Appearance Urine pH Ur Specific [place] Urine Protein Urine Glucose (UA) Urine Ketones Urine Blood Urine Nitrate Urine Bilirubin Urine Urobilinogen Urine Leukocytes Urine RBC Urine WBC Hyaline Casts Urine Mucus Ur Culture Indicated? Blood Type Antibody Screen Crossmatch 08/14/16 08/15/16 08/15/16 19:34 00:51 04:11 WBC RBC Hgb Hct MCV MCH MCHC RDW Plt Count MPV Neut % (Auto) Lymph % (Auto) [place] % (Auto) Eos % (Auto) Baso % (Auto) Neut # (Auto) Lymph # (Auto) [place] # (Auto) Eos # (Auto) Baso # (Auto) Total Counted Immature Gran % Nucleated RBC % Immature Gran # Segmented Neutrophils Band Neutrophils Lymphocytes Monocytes Nucleated RBCs # Platelet Estimate Hypochromasia INR PT Patient/Control Mix Circ Anticoag PTT Patient Temperature ABG pH 7.291 L 7.323 L ABG pH at Pt Temp ABG pCO2 47.1 46.8 ABG pCO2 at Pt Temp ABG pO2 116.0 H 94.6 ABG pO2 at Pt Temp ABG HCO3 21.0 22.7 ABG Total CO2 20.5 L 21.9 L ABG O2 Saturation 98.1 97.5 ABG Base Excess -4.1 L -2.0 ABG Sodium VBG pH VBG pCO2 VBG pO2 VBG HCO3 VBG Total CO2 VBG O2 Saturation VBG Base Excess Hemoglobin 11.7 L 11.4 L Hematocrit 36.2 L 35.2 L Potassium 4.2 4.1 Glucose 179 H 142 H Ionized Calcium FiO2 Sodium Chloride Carbon Dioxide Anion Gap BUN Creatinine GFR Calculation BUN/Creatinine Ratio Calculated Osmolality Calcium Venous Ioniz Calcium Magnesium Total Bilirubin Direct Bilirubin AST ALT Alkaline Phosphatase Total Creatine Kinase 968 H D CK-MB (CK-2) 41.2 H D CK and CKMB Interp 4.3 Troponin I 13.300 H Total Protein Albumin Globulin Albumin/Globulin Ratio Urine Color Urine Appearance Urine pH Ur Specific [place] Urine Protein Urine Glucose (UA) Urine Ketones Urine Blood Urine Nitrate Urine Bilirubin Urine Urobilinogen Urine Leukocytes Urine RBC Urine WBC Hyaline Casts Urine Mucus Ur Culture Indicated? Blood Type Antibody Screen Crossmatch 08/15/16 08/15/16 08/15/16 04:11 04:11 04:11 WBC 14.5 H RBC 3.59 L D Hgb 10.7 L D Hct 32.4 L MCV 90.3 MCH 30 MCHC 33.0 RDW 14.1 Plt Count 170 MPV 10.3 Neut % (Auto) 91.0 H Lymph % (Auto) 4.2 L [place] % (Auto) 4.1 Eos % (Auto) 0.0 Baso % (Auto) 0.1 Neut # (Auto) 13.2 H Lymph # (Auto) 0.6 L [place] # (Auto) 0.6 Eos # (Auto) 0.0 Baso # (Auto) 0.0 Total Counted 100 Immature Gran % 0.6 Nucleated RBC % 0.0 Immature Gran # 0.09 Segmented Neutrophils 93 H Band Neutrophils 1 Lymphocytes 1 L Monocytes 5 Nucleated RBCs # 0.00 Platelet Estimate Normal Hypochromasia 1+ INR PT Patient/Control Mix Circ Anticoag PTT Patient Temperature ABG pH 7.353 ABG pH at Pt Temp ABG pCO2 44.4 ABG pCO2 at Pt Temp ABG pO2 82.1 ABG pO2 at Pt Temp ABG HCO3 23.5 ABG Total CO2 22.3 L ABG O2 Saturation 96.0 ABG Base Excess -1.0 ABG Sodium VBG pH VBG pCO2 VBG pO2 VBG HCO3 VBG Total CO2 VBG O2 Saturation VBG Base Excess Hemoglobin 10.9 L Hematocrit 33.5 L Potassium 4.4 4.2 Glucose 116 H 123 H Ionized Calcium FiO2 Sodium 146 H Chloride 112 H Carbon Dioxide 24 Anion Gap 14.4 BUN 21 H Creatinine 1.20 GFR Calculation 95 BUN/Creatinine Ratio 17.00 Calculated Osmolality 293.6 Calcium 8.9 Venous Ioniz Calcium Magnesium 2.2 Total Bilirubin 0.90 Direct Bilirubin 0.3 H AST 45 H ALT 29 Alkaline Phosphatase 77 Total Creatine Kinase CK-MB (CK-2) CK and CKMB Interp Troponin I Total Protein 6.2 L Albumin 3.9 Globulin 2.3 Albumin/Globulin Ratio 1.6 Urine Color Urine Appearance Urine pH Ur Specific [place] Urine Protein Urine Glucose (UA) Urine Ketones Urine Blood Urine Nitrate Urine Bilirubin Urine Urobilinogen Urine Leukocytes Urine RBC Urine WBC Hyaline Casts Urine Mucus Ur Culture Indicated? Blood Type Antibody Screen Crossmatch Quality Measures - VTE Contraindication to Pharmacological VTE Prophylaxis: High Risk of Bleeding
[2016-08-15] MEDS ORDERED: ACETAMINOPHEN 325 MG TABLET PO PRN (06:23)
[2016-08-15] MEDS ORDERED: POTASSIUM CHLORIDE 20 MEQ TABLET PO PRN (06:23)
[2016-08-15] MEDS ORDERED: ZALEPLON 5 MG CAPSULE PO PRN (06:23)
[2016-08-15] MEDS ORDERED: MORPHINE 2 MG/1 ML SYRINGE IV PRN (06:23)
[2016-08-15] MEDS ORDERED: MAGNESIUM SULF RIDER 2 GM in PREMIX 1 EACH IV PRN (06:23)
[2016-08-15] MEDS ORDERED: DEXTROSE 50% 25 GM/50 ML VIAL IV PRN ×2 (06:23)
[2016-08-15] MEDS ORDERED: MAGNESIUM HYDROXIDE SUSP 30 ML UDCUP PO PRN (06:23)
[2016-08-15] MEDS ORDERED: GLUCAGON 1 MG VIAL IM PRN ×2 (06:23)
[2016-08-15] MEDS ORDERED: ALUMINUM/MAGNES/SIMETH MAX STR 30 ML UDCUP PO PRN (06:23)
[2016-08-15] MEDS ORDERED: MAGNESIUM SULF RIDER 4 GM in PREMIX 1 EACH IV PRN (06:23)
[2016-08-15] MEDS ORDERED: ONDANSETRON 4 MG/2 ML VIAL IV PRN (06:23)
[2016-08-15] MEDS ORDERED: KETOROLAC 30 MG/1 ML VIAL IV SCH (06:30)
[2016-08-15] MEDS ORDERED: SODIUM CHLOR 0.45% KCL 20 MEQ 20 MEQ/1,000 ML BAG IV SCH (06:30)
--- NOTE | 2016-08-15 08:00 | EKG Report ---
Stationary ECG Study [facility] Test Date: 08/15/2016 7:59:16 AM Pat Name: RYAN LEDEZMA Department: Room: 104 Gender: M Resident Care Manager: LORA : 1975 Requested by: Waylon Perez Order Number: [id number] Reyna MD: MARIA A ROBERTS Intervals [place] Rate: 76 P: 44 NM: 167 QRS: 53 QRSD: 97 T: -21 QT: 360 QTc: 390 Interpretive Statements SINUS RHYTHM POSSIBLE RIGHT VENTRICULAR CONDUCTION DELAY ST ELEVATION, CONSIDER ANTERIOR INJURY ACUTE TX Electronically Signed On 08-15-16 08:11:29 [employer]IST by MARIA A ROBERTS [email or web address]
[2016-08-15] MEDS: DOCUSATE SODIUM 100 MG CAPSULE PO SCH (08:03)
[2016-08-15] MEDS: PANTOPRAZOLE 40 MG TABLET PO SCH ×2 (08:03→12:24)
[2016-08-15] MEDS: CEFUROXIME INJ 1,500 MG in SODIUM CHLORIDE 0.9% 100 ML IV SCH (08:03)
[2016-08-15] MEDS: ASPIRIN EC 325 MG TABLET PO SCH (08:03)
[2016-08-15] MEDS: METOPROLOL SUCCINATE XL 25 MG TABLET PO SCH (08:16)
--- NOTE | 2016-08-15 08:18 | Cardiology Progress Note ---
Assessment and Plan (1) Coronary artery disease Status: Acute Current Visit: Yes (2) Status post aorto-coronary artery bypass graft Status: Acute Current Visit: Yes (3) Abnormal EKG Status: Acute Assessment and plan: The patient has abnormal ST-T segments suggestive of anterior injury on his EKG this morning which is what prompted me to come check on him. Clinically however he is not having symptoms that correlate with acute CT. He does have a friction rub on physical exam so I'm more suspicious that his EKG changes are pericardial related. We can continue routine postoperative management and close monitoring. Current Visit: Yes (4) Pericardial friction rub Status: Acute Current Visit: Yes Cardiology - PN: Subj Interval history: The patient is feeling well this morning with the exception of some hiccups. He is not having any angina. His EKG this morning showed some ST elevation anteriorly concerning for an acute CT. However, clinically but does not appear to be the case. He is not having any sort of angina or heart failure symptoms at this time. On exam he does have a friction rubs, therefore I think the EKG changes are probably pericardial related. Current Medications Acetaminophen (Tylenol Supp) 650 mg RECTAL Q4H PRN PRN Reason: Temp greater than 101F Acetaminophen (Tylenol Tab) 650 mg PO Q4H PRN PRN Reason: Temperature greater than 100F Al Hydrox/Mg Hydrox/Simethicone (Mylanta Max Strength Liquid) 30 ml PO Q4H PRN PRN Reason: Dyspepsia Aspirin () 325 mg PO DAILY [facility] Last Admin: 08/15/16 08:03 Dose: 325 mg Calcium Chloride () 250 mg IV ONCE PRN PRN Reason: MAP <60 w/ IVF & Phenylephrine Chlorhexidine Gluconate (Peridex) 15 ml SWISH/SPIT BID [facility] Last Admin: 08/14/16 21:21 Dose: 15 ml Chlorhexidine Gluconate (Peridex) 15 ml SWISH/SPIT BID [facility] Dextrose/Water (D50) 12.5 gm IV Q15M PRN PRN Reason: BG 71 - 80 mg/dL Dextrose/Water (D50) 25 gm IV Q15M PRN PRN Reason: BG less than/equal to 70 mg/dL Dextrose/Water (D50) 25 gm IV PRN PRN PRN Reason: Hypoglycemia with IV access Dextrose/Water (D50) 25 gm IV PRN PRN PRN Reason: Hypoglycemia with IV access Docusate Sodium (Colace Cap) 100 mg PO DAILY [facility] Last Admin: 08/15/16 08:03 Dose: 100 mg Ferrous Sulfate (Feosol Original Tab) 325 mg PO DAILY MONE Furosemide (Lasix Inj) 40 mg IV ONCE ONE Stop: 08/16/16 06:01 Glucagon () 1 mg IM PRN PRN PRN Reason: Hypoglycemia w/o IV access Glucagon () 1 mg IM PRN PRN PRN Reason: Hypoglycemia w/o IV access Albumin Human 12.5 gm/ Premix 250 mls @ 1,000 mls/hr IV BOLUS PRN PRN Reason: MAP <60 &/or CO <3 Last Admin: 08/15/16 05:41 Dose: 1,000 mls/hr Magnesium Sulfate 2 gm/ Premix 50 mls @ 25 mls/hr IV .PER PROTOCOL PRN; Protocol PRN Reason: Per Protocol Sodium Nitroprusside 100 mg/ (Dextrose/Water) 254 mls @ 7.15 mls/hr IV TITRATE PRN; Protocol; 0.5 MCG/KG/MIN PRN Reason: maintain MAP 60 - 90 mmHg Last Titration: 08/14/16 23:39 Dose: 0 mcg/kg/min, 0 mls/hr Phenylephrine/Sodium Chloride ([place] Synephrine Drip) 40 mg in 250 mls @ 3.75 mls /hr IV TITRATE PRN; Protocol; 10 MCG/MIN PRN Reason: maintain MAP greater than 60 Sodium Chloride (1/2ns) 1,000 mls @ 20 mls/hr IV .Q24H MONE Last Infusion: 08/14/16 16:51 Dose: 20 mls/hr Sodium Chloride (1/2ns) 1,000 mls @ 20 mls/hr IV .Q24H MONE Last Infusion: 08/14/16 16:51 Dose: 20 mls/hr Cefuroxime Sodium 1,500 mg/ (Sodium Chloride) 100 mls @ 200 mls/hr IV Q12H MONE Stop: 08/15/16 19:59 Last Admin: 08/15/16 08:03 Dose: 200 mls/hr Insulin Human Regular () 100 mls @ 1.878 mls/hr IV TITRATE MONE; 0.02 UNITS/KG/ HR PRN Reason: Protocol Last Titration: 08/15/16 05:31 Dose: 0.04 units/kg/hr, 4 mls/hr Magnesium Sulfate 4 gm/ Premix 100 mls @ 25 mls/hr IV .PER PROTOCOL PRN; Protocol PRN Reason: Per Protocol Potassium Chloride 10 meq/ (Premix) 100 mls @ 100 mls/hr IV .PER PROTOCOL PRN; Protocol PRN Reason: Per Protocol Last Infusion: 08/14/16 13:30 Dose: Infused Potassium Chloride 20 meq/ (Premix) 100 mls @ 50 mls/hr IV .PER PROTOCOL PRN; Protocol PRN Reason: Per Protocol Last Infusion: 08/15/16 06:16 Dose: Infused Lactated Ringer's (Lr) 1,000 mls @ 999 mls/hr IV BOLUS PRN PRN Reason: MAP < 60 &/or CO < 3 Last Infusion: 08/14/16 18:27 Dose: Infused Potassium Chloride/Sodium Chloride (1/2ns Kcl 20 Meq) 20 meq in 1,000 mls @ 20 mls/hr IV .Q24H MONE Stop: 08/16/16 09:00 Last Admin: 08/15/16 08:04 Dose: 20 mls/hr Magnesium Sulfate 2 gm/ Premix 50 mls @ 25 mls/hr IV .PER PROTOCOL PRN; Protocol PRN Reason: Per Protocol Magnesium Sulfate 4 gm/ Premix 100 mls @ 25 mls/hr IV .PER PROTOCOL PRN; Protocol PRN Reason: Per Protocol Insulin Human Regular (Humulin R) 0 unit IV PRN PRN; Protocol PRN Reason: INSULIN PROTOCOL BOLUS Ketorolac Tromethamine (Toradol Inj) 30 mg IV Q6H MONE Stop: 08/15/16 17:31 Last Admin: 08/15/16 05:21 Dose: 30 mg Ketorolac Tromethamine (Toradol Inj) 30 mg IV Q6H MONE Stop: 08/20/16 06:29 Magnesium Hydroxide (Milk Of Magnesia) 30 ml PO Q6H PRN PRN Reason: Constipation Metoprolol Succinate (Toprol Xl) 25 mg PO DAILY [facility] Last Admin: 08/15/16 08:16 Dose: 25 mg Midazolam HCl (Versed) 2 mg IV Q2H PRN PRN Reason: Moderate restlessness/anxiety Last Admin: 08/15/16 06:15 Dose: 2 mg Midazolam HCl (Versed) 5 mg IV Q2H PRN PRN Reason: Severe restlessness/anxiety Morphine Sulfate () 2 mg IV Q2H PRN PRN Reason: Pain Mild (1-3) Morphine Sulfate () 5 mg IV Q2H PRN PRN Reason: Moderate or Severe Pain Morphine Sulfate () 2 mg IV Q2H PRN PRN Reason: Pain Moderate (4-7) Ondansetron HCl (Zofran Inj) 4 mg IV Q6H PRN PRN Reason: Nausea/Vomiting Ondansetron HCl (Zofran Inj) 4 mg IV Q4H PRN PRN Reason: Nausea/Vomiting Oxycodone/Acetaminophen (Percocet 5-325) 1 tablet PO Q4H PRN PRN Reason: Pain Mild (1-3) Pantoprazole Sodium (Protonix Tab) 40 mg PO DAILY MONE Last Admin: 08/15/16 08:03 Dose: 40 mg Potassium Chloride (K Dur) 20 meq PO .PER PROTOCOL PRN; Protocol PRN Reason: Per Protocol Rosuvastatin Calcium (Crestor) 40 mg PO BEDTIME MONE Vecuronium [place] (Norcuron) 2 mg IV Q1-2H PRN PRN Reason: Mild agitation or shivering Vecuronium [place] (Norcuron) 5 mg IV Q1-2H PRN PRN Reason: Moderate agitation / shivering Zaleplon (Sonata) 5 mg PO BEDTIME PRN PRN Reason: Sleep Exam (Progress Note) - Constitutional Vitals: Period Temp Pulse Resp BP Sys/Storm Pulse Ox Last 24 Hr 96.4 F-98.7 F 77-94 10-19 84-146/55-92 95-99 Exam: General: Appears well developed, well nourished, no apparent distress HEENT: Normocephalic, atraumatic Neck: Supple Neck, Midline Trachea, No Bruit, No JVD Cardiac: Regular rhythm with prominent friction rub Surgical wounds: dressed, clean Lungs: Clear to auscultation, No Wheeze, Rales, Rhonchi Neuro: Cranial Nerve 2-12 Intact, Motor Function Grossly Intact Abdomen: Soft, Active Bowel Sounds, No Masses, No Pulsations/Bruits Skin: Normal color, no rash Extremities: No Clubbing, No Cyanosis, trace Edema, Normal Upper Extr. Pulses Musculoskeletal: No acute abnormality noted Psychiatric: The patient does not appear to be anxious or depressed Result/EKG - Labs CBC & BMP: 08/15/16 04:11 08/15/16 04:11 Lab Results: I have reviewed the past 24 hour labs Labs: Laboratory Results - last 24 hr 08/13/16 08/14/16 08/14/16 04:16 08:45 09:15 WBC RBC Hgb Hct MCV MCH MCHC RDW Plt Count MPV Neut % (Auto) Lymph % (Auto) Branch % (Auto) Eos % (Auto) Baso % (Auto) Neut # (Auto) Lymph # (Auto) Branch # (Auto) Eos # (Auto) Baso # (Auto) Total Counted Immature Gran % Nucleated RBC % Immature Gran # Segmented Neutrophils Band Neutrophils Lymphocytes Monocytes Nucleated RBCs # Platelet Estimate Hypochromasia INR PT Patient/Control Mix Circ Anticoag PTT Patient Temperature 34 33 ABG pH ABG pH at Pt Temp 7.426 7.435 ABG pCO2 ABG pCO2 at Pt Temp 35.8 34.8 ABG pO2 ABG pO2 at Pt Temp 35.0 35.8 ABG HCO3 ABG Total CO2 ABG O2 Saturation ABG Base Excess ABG Sodium 136 133 L VBG pH 7.382 7.377 VBG pCO2 41.4 42.2 VBG pO2 43.2 H 47.2 H VBG HCO3 23.7 L 23.8 L VBG Total CO2 22.3 22.3 VBG O2 Saturation 78.8 82.7 VBG Base Excess -0.5 L -0.4 L Hemoglobin 10.7 L D 11.5 L Hematocrit 32.9 L 35.4 L Potassium 5.2 H 6.6 H* Glucose 155 H 224 H Ionized Calcium FiO2 80.00 80.00 Sodium Chloride Carbon Dioxide Anion Gap BUN Creatinine GFR Calculation BUN/Creatinine Ratio Calculated Osmolality Calcium Venous Ioniz Calcium 1.00 L 1.05 L Magnesium Total Bilirubin Direct Bilirubin AST ALT Alkaline Phosphatase Total Creatine Kinase CK-MB (CK-2) CK and CKMB Interp Troponin I Total Protein Albumin Globulin Albumin/Globulin Ratio Blood Type A POSITIVE Antibody Screen Negative Crossmatch See Detail 08/14/16 08/14/16 08/14/16 09:45 10:38 10:38 WBC RBC Hgb Hct MCV MCH MCHC RDW Plt Count 153 D MPV Neut % (Auto) Lymph % (Auto) Branch % (Auto) Eos % (Auto) Baso % (Auto) Neut # (Auto) Lymph # (Auto) Branch # (Auto) Eos # (Auto) Baso # (Auto) Total Counted Immature Gran % Nucleated RBC % Immature Gran # Segmented Neutrophils Band Neutrophils Lymphocytes Monocytes Nucleated RBCs # Platelet Estimate Hypochromasia INR PT Patient/Control Mix Circ Anticoag PTT Patient Temperature 36 37 ABG pH 7.363 ABG pH at Pt Temp 7.432 7.363 ABG pCO2 38.9 ABG pCO2 at Pt Temp 36.7 38.9 ABG pO2 99.5 H ABG pO2 at Pt Temp 41.8 99.5 ABG HCO3 22.0 ABG Total CO2 19.7 L ABG O2 Saturation 97.8 ABG Base Excess -2.9 L ABG Sodium 130 L 138 VBG pH 7.417 VBG pCO2 38.3 L VBG pO2 44.9 H VBG HCO3 24.1 VBG Total CO2 25.3 VBG O2 Saturation 79.8 VBG Base Excess -0.2 L Hemoglobin 12.2 L 12.0 L Hematocrit 36.0 L 36.8 L Potassium 6.5 H* 4.2 Glucose 194 H 149 H Ionized Calcium 1.30 FiO2 80.00 Sodium Chloride Carbon Dioxide Anion Gap BUN Creatinine GFR Calculation BUN/Creatinine Ratio Calculated Osmolality Calcium Venous Ioniz Calcium 0.95 Magnesium Total Bilirubin Direct Bilirubin AST ALT Alkaline Phosphatase Total Creatine Kinase CK-MB (CK-2) CK and CKMB Interp Troponin I Total Protein Albumin Globulin Albumin/Globulin Ratio Blood Type Antibody Screen Crossmatch 08/14/16 08/14/16 08/14/16 11:40 11:40 11:40 WBC 12.8 H D RBC 4.49 Hgb 13.2 L Hct 39.6 L MCV 88.2 MCH 29 MCHC 33.3 RDW 13.4 Plt Count 166 MPV 10.0 Neut % (Auto) 87.4 H Lymph % (Auto) 5.9 L Branch % (Auto) 5.7 Eos % (Auto) 0.2 Baso % (Auto) 0.2 Neut # (Auto) 11.2 H Lymph # (Auto) 0.8 L Branch # (Auto) 0.7 Eos # (Auto) 0.0 Baso # (Auto) 0.0 Total Counted Immature Gran % 0.6 Nucleated RBC % 0.0 Immature Gran # 0.08 Segmented Neutrophils Band Neutrophils Lymphocytes Monocytes Nucleated RBCs # 0.00 Platelet Estimate Hypochromasia INR 1.1 PT Patient/Control Mix 11.6 Circ Anticoag PTT 30.1 Patient Temperature ABG pH ABG pH at Pt Temp ABG pCO2 ABG pCO2 at Pt Temp ABG pO2 ABG pO2 at Pt Temp ABG HCO3 ABG Total CO2 ABG O2 Saturation ABG Base Excess ABG Sodium VBG pH VBG pCO2 VBG pO2 VBG HCO3 VBG Total CO2 VBG O2 Saturation VBG Base Excess Hemoglobin Hematocrit Potassium 4.0 Glucose 125 H Ionized Calcium FiO2 Sodium 148 H Chloride 114 H Carbon Dioxide 23 Anion Gap 15.0 BUN 19 H Creatinine 1.30 GFR Calculation 86 BUN/Creatinine Ratio 14.00 Calculated Osmolality 296.3 Calcium 10.0 Venous Ioniz Calcium Magnesium 2.6 H Total Bilirubin 1.00 Direct Bilirubin AST 34 ALT 22 Alkaline Phosphatase 99 Total Creatine Kinase CK-MB (CK-2) CK and CKMB Interp Troponin I Total Protein 5.9 L Albumin 3.3 L Globulin 2.6 Albumin/Globulin Ratio 1.2 Blood Type Antibody Screen Crossmatch 08/14/16 08/14/16 08/14/16 11:40 11:43 13:47 WBC RBC Hgb Hct MCV MCH MCHC RDW Plt Count MPV Neut % (Auto) Lymph % (Auto) Branch % (Auto) Eos % (Auto) Baso % (Auto) Neut # (Auto) Lymph # (Auto) Branch # (Auto) Eos # (Auto) Baso # (Auto) Total Counted Immature Gran % Nucleated RBC % Immature Gran # Segmented Neutrophils Band Neutrophils Lymphocytes Monocytes Nucleated RBCs # Platelet Estimate Hypochromasia INR PT Patient/Control Mix Circ Anticoag PTT Patient Temperature ABG pH 7.423 7.423 ABG pH at Pt Temp ABG pCO2 33.9 L 32.8 L ABG pCO2 at Pt Temp ABG pO2 101.0 H 114.0 H ABG pO2 at Pt Temp ABG HCO3 23.1 22.6 ABG Total CO2 19.2 L 18.8 L ABG O2 Saturation 98.2 98.7 ABG Base Excess -1.6 -2.2 ABG Sodium VBG pH VBG pCO2 VBG pO2 VBG HCO3 VBG Total CO2 VBG O2 Saturation VBG Base Excess Hemoglobin 13.4 L 12.5 L Hematocrit 41.1 L 38.5 L Potassium 3.8 4.6 Glucose 126 H 157 H Ionized Calcium FiO2 Sodium Chloride Carbon Dioxide Anion Gap BUN Creatinine GFR Calculation BUN/Creatinine Ratio Calculated Osmolality Calcium Venous Ioniz Calcium Magnesium Total Bilirubin Direct Bilirubin AST ALT Alkaline Phosphatase Total Creatine Kinase 365 H D CK-MB (CK-2) 30.7 H D CK and CKMB Interp 8.4 Troponin I 7.310 H D Total Protein Albumin Globulin Albumin/Globulin Ratio Blood Type Antibody Screen Crossmatch 08/14/16 08/14/16 08/14/16 16:20 18:26 19:34 WBC RBC Hgb Hct MCV MCH MCHC RDW Plt Count MPV Neut % (Auto) Lymph % (Auto) Branch % (Auto) Eos % (Auto) Baso % (Auto) Neut # (Auto) Lymph # (Auto) Branch # (Auto) Eos # (Auto) Baso # (Auto) Total Counted Immature Gran % Nucleated RBC % Immature Gran # Segmented Neutrophils Band Neutrophils Lymphocytes Monocytes Nucleated RBCs # Platelet Estimate Hypochromasia INR PT Patient/Control Mix Circ Anticoag PTT Patient Temperature ABG pH 7.432 7.393 ABG pH at Pt Temp ABG pCO2 34.8 L 35.5 ABG pCO2 at Pt Temp ABG pO2 93.4 121.0 H ABG pO2 at Pt Temp ABG HCO3 22.7 22.2 ABG Total CO2 23.8 19.4 L ABG O2 Saturation 96.7 98.9 ABG Base Excess -1.1 -2.7 L ABG Sodium VBG pH VBG pCO2 VBG pO2 VBG HCO3 VBG Total CO2 VBG O2 Saturation VBG Base Excess Hemoglobin 12.5 L 11.3 L Hematocrit 37.0 L 34.9 L Potassium 4.5 4.4 Glucose 166 H 168 H Ionized Calcium FiO2 Sodium Chloride Carbon Dioxide Anion Gap BUN Creatinine GFR Calculation BUN/Creatinine Ratio Calculated Osmolality Calcium Venous Ioniz Calcium Magnesium Total Bilirubin Direct Bilirubin AST ALT Alkaline Phosphatase Total Creatine Kinase 703 H D CK-MB (CK-2) 32.0 H CK and CKMB Interp 4.6 Troponin I 12.100 H D Total Protein Albumin Globulin Albumin/Globulin Ratio Blood Type Antibody Screen Crossmatch 08/14/16 08/15/16 08/15/16 19:34 00:51 04:11 WBC RBC Hgb Hct MCV MCH MCHC RDW Plt Count MPV Neut % (Auto) Lymph % (Auto) Branch % (Auto) Eos % (Auto) Baso % (Auto) Neut # (Auto) Lymph # (Auto) Branch # (Auto) Eos # (Auto) Baso # (Auto) Total Counted Immature Gran % Nucleated RBC % Immature Gran # Segmented Neutrophils Band Neutrophils Lymphocytes Monocytes Nucleated RBCs # Platelet Estimate Hypochromasia INR PT Patient/Control Mix Circ Anticoag PTT Patient Temperature ABG pH 7.291 L 7.323 L ABG pH at Pt Temp ABG pCO2 47.1 46.8 ABG pCO2 at Pt Temp ABG pO2 116.0 H 94.6 ABG pO2 at Pt Temp ABG HCO3 21.0 22.7 ABG Total CO2 20.5 L 21.9 L ABG O2 Saturation 98.1 97.5 ABG Base Excess -4.1 L -2.0 ABG Sodium VBG pH VBG pCO2 VBG pO2 VBG HCO3 VBG Total CO2 VBG O2 Saturation VBG Base Excess Hemoglobin 11.7 L 11.4 L Hematocrit 36.2 L 35.2 L Potassium 4.2 4.1 Glucose 179 H 142 H Ionized Calcium FiO2 Sodium Chloride Carbon Dioxide Anion Gap BUN Creatinine GFR Calculation BUN/Creatinine Ratio Calculated Osmolality Calcium Venous Ioniz Calcium Magnesium Total Bilirubin Direct Bilirubin AST ALT Alkaline Phosphatase Total Creatine Kinase 968 H D CK-MB (CK-2) 41.2 H D CK and CKMB Interp 4.3 Troponin I 13.300 H Total Protein Albumin Globulin Albumin/Globulin Ratio Blood Type Antibody Screen Crossmatch 08/15/16 08/15/16 08/15/16 04:11 04:11 04:11 WBC 14.5 H RBC 3.59 L D Hgb 10.7 L D Hct 32.4 L MCV 90.3 MCH 30 MCHC 33.0 RDW 14.1 Plt Count 170 MPV 10.3 Neut % (Auto) 91.0 H Lymph % (Auto) 4.2 L Branch % (Auto) 4.1 Eos % (Auto) 0.0 Baso % (Auto) 0.1 Neut # (Auto) 13.2 H Lymph # (Auto) 0.6 L Branch # (Auto) 0.6 Eos # (Auto) 0.0 Baso # (Auto) 0.0 Total Counted 100 Immature Gran % 0.6 Nucleated RBC % 0.0 Immature Gran # 0.09 Segmented Neutrophils 93 H Band Neutrophils 1 Lymphocytes 1 L Monocytes 5 Nucleated RBCs # 0.00 Platelet Estimate Normal Hypochromasia 1+ INR PT Patient/Control Mix Circ Anticoag PTT Patient Temperature ABG pH 7.353 ABG pH at Pt Temp ABG pCO2 44.4 ABG pCO2 at Pt Temp ABG pO2 82.1 ABG pO2 at Pt Temp ABG HCO3 23.5 ABG Total CO2 22.3 L ABG O2 Saturation 96.0 ABG Base Excess -1.0 ABG Sodium VBG pH VBG pCO2 VBG pO2 VBG HCO3 VBG Total CO2 VBG O2 Saturation VBG Base Excess Hemoglobin 10.9 L Hematocrit 33.5 L Potassium 4.4 4.2 Glucose 116 H 123 H Ionized Calcium FiO2 Sodium 146 H Chloride 112 H Carbon Dioxide 24 Anion Gap 14.4 BUN 21 H Creatinine 1.20 GFR Calculation 95 BUN/Creatinine Ratio 17.00 Calculated Osmolality 293.6 Calcium 8.9 Venous Ioniz Calcium Magnesium 2.2 Total Bilirubin 0.90 Direct Bilirubin 0.3 H AST 45 H ALT 29 Alkaline Phosphatase 77 Total Creatine Kinase CK-MB (CK-2) CK and CKMB Interp Troponin I Total Protein 6.2 L Albumin 3.9 Globulin 2.3 Albumin/Globulin Ratio 1.6 Blood Type Antibody Screen Crossmatch - EKG EKG results: interpreted by me Quality Measures - VTE Contraindication to Pharmacological VTE Prophylaxis: High Risk of Bleeding Specialty Discharge - Follow Up or Referrals
--- NOTE | 2016-08-15 08:24 | XRay Report ---
XR chest 1V portable Indication: Post chest tube removal, look for pneumothorax Comparison: Chest x-ray dated August 14 2016 Technique: Single frontal view of the chest Findings: Cardiomediastinal silhouette is stable in configuration status post sternotomy. [place] catheter and right-sided vascular catheter appear similar in positioning. Minimally improved bilateral perihilar atelectasis/consolidation. Small left apical pneumothorax. Osseous and surrounding soft tissue structures appear grossly unchanged. IMPRESSION: Minimally improved bilateral perihilar atelectasis/consolidation. Small left apical pneumothorax. Findings discussed with nurse Paz Alvarez at time of dictation. PROCEDURE INTERPRETED AT [facility] DEPARTMENT OF RADIOLOGY Final Report Signed by: Dr Karan Gallagher
[2016-08-15] MEDS: oxyCODONE/ACETAMINOPHEN 5-325 MG TABLET PO PRN ×2 (09:14→20:22)
[2016-08-15] MEDS: CHLORHEXIDINE 0.12% ORAL RINSE 60 ML BOTTLE SWISH/SPIT SCH ×3 (09:14→20:23)
[2016-08-15] MEDS: FERROUS SULFATE 325 MG TABLET PO SCH (09:16)
[2016-08-15] MEDS ORDERED: CLORAZEPATE 3.75 MG TABLET PO PRN (10:15)
[2016-08-15] MEDS ORDERED: NON-FORMULARY MEDICATION (Tadalafil [Cialis] 5 MG) PO SCH (12:12)
[2016-08-15] MEDS: ASPIRIN EC 81 MG TABLET PO SCH (12:20)
[2016-08-15] MEDS: LEVOTHYROXINE 50 MCG TABLET PO SCH (12:43)
[2016-08-15] MEDS: LISINOPRIL 20 MG TABLET PO SCH (12:43)
[2016-08-15] MEDS: OMEGA 3 ACID ETHYL ESTERS 1 GM CAPSULE PO SCH (12:46)
[2016-08-15 13:03] LABS: CKMB % 3.3 %
[2016-08-15] MEDS ORDERED: MORPHINE 10 MG/1 ML VIAL IV PRN (13:04)
[2016-08-15 13:06] LABS: Troponin I Only 14.3 NG/ML (0.00-0.045)
--- NOTE | 2016-08-15 13:38 | Anesthesia ---
Anesthesia Post OP - Post Ansesthetic Evaluation Patient seen in post op: Yes Resp: within normal limits CV: within normal limits Mental: within normal limits Temp: within normal limits [id number]: within normal limits Nausea and Vomiting: within normal limits Pain: within normal limits
[2016-08-15] MEDS ORDERED: METOCLOPRAMIDE 10 MG/2 ML VIAL IV PRN (15:38)
[2016-08-15] MEDS ORDERED: PROMETHAZINE INJ 12.5 MG in SODIUM CHLORIDE 0.9% 50 ML IV PRN (15:38)
[2016-08-15] MEDS: ROSUVASTATIN 20 MG TABLET PO SCH (20:23)
[2016-08-15] MEDS ORDERED: CEFUROXIME INJ 1,500 MG in SODIUM CHLORIDE 0.9% 100 ML IV ONE (20:30)
[2016-08-16] MEDS: KETOROLAC 30 MG/1 ML VIAL IM PRN ×3 (00:11→12:59)
[2016-08-16] MEDS: oxyCODONE/ACETAMINOPHEN 5-325 MG TABLET PO PRN ×2 (01:29→19:14)
[2016-08-16 04:28] LABS: Basophils % 0.1 % (0.0-0.8); Hematocrit 30.5 VOL% (42.0-52.0); Hemoglobin 10.2 GM/DL (14.0-18.0); Immature Granulocytes % 0.6 %; Immature Granulocytes Absolute 0.08 #; Lymphocytes % 6.7 % (21.2-54.2); Mean Corpuscular HGB Conc 33.4 GM/DL (32-36); Mean Corpuscular Hemoglobin 30 PG (27-34); Mean Corpuscular Volume 89.2 FL (87-102); Mean Platelet Volume 11.1 FL (9.6-12.0); Monocytes # 0.9 10*3/uL (0.11-0.8); Monocytes % 6.1 % (1.7-12.7); Neutrophils # 12.4 10*3/uL (1.4-7.4); Neutrophils % 86.5 % (38.7-73.9); Platelet Count 211 T/CUMM (130-400); Red Blood Count 3.42 MC/CUMM (3.8-5.5); Red Cell Distribution Width 14.6 % (9.3-17.3); White Blood Count 14.4 T/CUMM (4-12)
[2016-08-16 05:19] LABS: Albumin 3.7 G/DL (3.4-5.0); Bilirubin,Direct 0.2 MG/DL (0.0-0.20); Bilirubin,Indirect 1.2 MG/DL (0.0-1.0); Bilirubin,Total 1.4 MG/DL (0.2-1.0); CKMB % 1.7 %; Calcium 8.4 MG/DL (8.5-10.1); Magnesium 2.4 MG/DL (1.8-2.4); Osmolality,Calculated 296.1 MOS/KG (273-304); Potassium 4.5 MMOL/L (3.5-5.1); Total Protein 5.9 G/DL (6.4-8.3); Troponin I Only 13.7 NG/ML (0.00-0.045)
[2016-08-16] MEDS ORDERED: FUROSEMIDE 40 MG/4 ML VIAL IV ONE (06:00)
--- NOTE | 2016-08-16 06:23 | Cardiothoracic Progress Note ---
Cardiothoracic Subjective Interval history: Patient complains of soreness but is otherwise okay. Vital signs have been stable and he is breathing comfortably. His Toradol was interrupted and I will resume it today. We'll Exam (Progress Note) - Constitutional Vitals: Period Temp Pulse Resp BP Sys/Storm Pulse Ox Last 24 Hr 96.8 F-98.7 F 77-84 16-20 116-126/68-81 90-98 Result/EKG - Labs CBC & BMP: 08/16/16 04:10 08/16/16 04:10 Labs: Laboratory Results - last 24 hr 08/13/16 08/14/16 08/14/16 04:16 21:15 22:15 WBC RBC Hgb Hct MCV MCH MCHC RDW Plt Count MPV Neut % (Auto) Lymph % (Auto) [place] % (Auto) Eos % (Auto) Baso % (Auto) Neut # (Auto) Lymph # (Auto) [place] # (Auto) Eos # (Auto) Baso # (Auto) Immature Gran % Nucleated RBC % Immature Gran # Nucleated RBCs # Sodium Potassium Chloride Carbon Dioxide Anion Gap BUN Creatinine GFR Calculation BUN/Creatinine Ratio Glucose POC Glucose 165 H 149 H Calculated Osmolality Calcium Magnesium Total Bilirubin Direct Bilirubin Indirect Bilirubin AST ALT Alkaline Phosphatase Total Creatine Kinase CK-MB (CK-2) CK and CKMB Interp Troponin I Total Protein Albumin Globulin Albumin/Globulin Ratio Blood Type A POSITIVE Antibody Screen Negative Crossmatch See Detail 08/14/16 08/15/16 08/15/16 23:17 00:22 02:16 WBC RBC Hgb Hct MCV MCH MCHC RDW Plt Count MPV Neut % (Auto) Lymph % (Auto) [place] % (Auto) Eos % (Auto) Baso % (Auto) Neut # (Auto) Lymph # (Auto) [place] # (Auto) Eos # (Auto) Baso # (Auto) Immature Gran % Nucleated RBC % Immature Gran # Nucleated RBCs # Sodium Potassium Chloride Carbon Dioxide Anion Gap BUN Creatinine GFR Calculation BUN/Creatinine Ratio Glucose POC Glucose 158 H 135 H 129 H Calculated Osmolality Calcium Magnesium Total Bilirubin Direct Bilirubin Indirect Bilirubin AST ALT Alkaline Phosphatase Total Creatine Kinase CK-MB (CK-2) CK and CKMB Interp Troponin I Total Protein Albumin Globulin Albumin/Globulin Ratio Blood Type Antibody Screen Crossmatch 08/15/16 08/15/16 08/15/16 03:08 05:29 11:31 WBC RBC Hgb Hct MCV MCH MCHC RDW Plt Count MPV Neut % (Auto) Lymph % (Auto) [place] % (Auto) Eos % (Auto) Baso % (Auto) Neut # (Auto) Lymph # (Auto) [place] # (Auto) Eos # (Auto) Baso # (Auto) Immature Gran % Nucleated RBC % Immature Gran # Nucleated RBCs # Sodium Potassium Chloride Carbon Dioxide Anion Gap BUN Creatinine GFR Calculation BUN/Creatinine Ratio Glucose POC Glucose 119 H 109 H Calculated Osmolality Calcium Magnesium Total Bilirubin Direct Bilirubin Indirect Bilirubin AST ALT Alkaline Phosphatase Total Creatine Kinase 1084 H CK-MB (CK-2) 36.0 H D CK and CKMB Interp 3.3 Troponin I 14.300 H Total Protein Albumin Globulin Albumin/Globulin Ratio Blood Type Antibody Screen Crossmatch 08/16/16 08/16/16 04:10 04:10 WBC 14.4 H RBC 3.42 L Hgb 10.2 L Hct 30.5 L MCV 89.2 MCH 30 MCHC 33.4 RDW 14.6 Plt Count 211 D MPV 11.1 Neut % (Auto) 86.5 H Lymph % (Auto) 6.7 L [place] % (Auto) 6.1 Eos % (Auto) 0.0 Baso % (Auto) 0.1 Neut # (Auto) 12.4 H Lymph # (Auto) 1.0 L [place] # (Auto) 0.9 H Eos # (Auto) 0.0 Baso # (Auto) 0.0 Immature Gran % 0.6 Nucleated RBC % 0.0 Immature Gran # 0.08 Nucleated RBCs # 0.00 Sodium 142 Potassium 4.5 Chloride 107 Carbon Dioxide 25 Anion Gap 14.5 BUN 34 H D Creatinine 1.20 GFR Calculation 100 BUN/Creatinine Ratio 28.00 H Glucose 213 H POC Glucose Calculated Osmolality 296.1 Calcium 8.4 L Magnesium 2.4 Total Bilirubin 1.40 H Direct Bilirubin 0.2 Indirect Bilirubin 1.2 H AST 50 H ALT 41 Alkaline Phosphatase 79 Total Creatine Kinase 1150 H CK-MB (CK-2) 19.8 H D CK and CKMB Interp 1.7 Troponin I 13.700 H Total Protein 5.9 L Albumin 3.7 Globulin 2.2 L Albumin/Globulin Ratio 1.6 Blood Type Antibody Screen Crossmatch Quality Measures - VTE Contraindication to Pharmacological VTE Prophylaxis: High Risk of Bleeding Specialty Discharge - Follow Up or Referrals
--- NOTE | 2016-08-16 09:02 | XRay Report ---
XR chest 1V portable Indication: Shortness of breath Comparison: 15 August 2016 Findings: The heart and mediastinum are stable in size and configuration cardiac surgery changes. [place] catheters been removed. The pulmonary vascularity is slightly increased with bilateral increased interstitial lung density. No other lung infiltrates, effusions, pneumothorax or other abnormality is demonstrated. Impression: Findings suggest mild cardiac decompensation. Removal of [place] catheter. No other significant changes. PROCEDURE INTERPRETED AT [facility] DEPARTMENT OF RADIOLOGY Final Report Signed by: Dr. Marlon Duran
[2016-08-16] MEDS: OMEGA 3 ACID ETHYL ESTERS 1 GM CAPSULE PO SCH (09:36)
[2016-08-16] MEDS: FERROUS SULFATE 325 MG TABLET PO SCH (09:36)
[2016-08-16] MEDS: METOPROLOL SUCCINATE XL 25 MG TABLET PO SCH (09:36)
[2016-08-16] MEDS: LISINOPRIL 20 MG TABLET PO SCH (09:36)
[2016-08-16] MEDS: PANTOPRAZOLE 40 MG TABLET PO SCH ×2 (09:37)
[2016-08-16] MEDS: ASPIRIN EC 325 MG TABLET PO SCH (09:37)
[2016-08-16] MEDS: CHLORHEXIDINE 0.12% ORAL RINSE 60 ML BOTTLE SWISH/SPIT SCH ×2 (09:37→22:24)
[2016-08-16] MEDS: LEVOTHYROXINE 50 MCG TABLET PO SCH (09:37)
[2016-08-16] MEDS: DOCUSATE SODIUM 100 MG CAPSULE PO SCH (09:37)
[2016-08-16] MEDS: ASPIRIN EC 81 MG TABLET PO SCH (10:51)
--- NOTE | 2016-08-16 13:38 | Cardiology Progress Note ---
I, Ofelia Graham RN, am scribing for, and in the presence of, Brandon Cadena MD 13:37. Assessment and Plan (1) Coronary artery disease Status: Acute Current Visit: Yes (2) Status post aorto-coronary artery bypass graft Status: Acute Current Visit: Yes (3) Abnormal EKG Status: Acute Assessment and plan: 08/15/15 The patient has abnormal ST-T segments suggestive of anterior injury on his EKG yesterday morning which is what prompted me to come check on him. Clinically however he is not having symptoms that correlate with acute MT. He does have a friction rub on physical exam so I'm more suspicious that his EKG changes are pericardial related. We can continue routine postoperative management and close monitoring. Current Visit: Yes (4) Pericardial friction rub Status: Acute Current Visit: Yes Cardiology - PN: Subj Interval history: Resting in bed in no acute distress. Day 2 postop CABG. Denies any chest pain , just soreness at his surgical wounds. Reports his breathing is improved, oxygen not in use. Denies any palpitations or dizziness. He is in sinus rhythm with rates in the 80's. Troponin has started trending down, at 13.7 today. Current Medications Acetaminophen (Tylenol Tab) 650 mg PO Q4H PRN PRN Reason: Temperature greater than 100F Al Hydrox/Mg Hydrox/Simethicone (Mylanta Max Strength Liquid) 30 ml PO Q4H PRN PRN Reason: Dyspepsia Aspirin () 81 mg PO DAILY [facility] Last Admin: 08/16/16 10:51 Dose: Not Given Chlorhexidine Gluconate (Peridex) 15 ml SWISH/SPIT BID [facility] Last Admin: 08/16/16 09:37 Dose: 15 ml Clorazepate Dipotassium (Tranxene) 3.75 mg PO Q6H PRN PRN Reason: Anxiety Last Admin: 08/15/16 12:43 Dose: 3.75 mg Dextrose/Water (D50) 25 gm IV PRN PRN PRN Reason: Hypoglycemia with IV access Docusate Sodium (Colace Cap) 100 mg PO DAILY [facility] Last Admin: 08/16/16 09:37 Dose: 100 mg Ferrous Sulfate (Feosol Original Tab) 325 mg PO DAILY [facility] Last Admin: 08/16/16 09:36 Dose: 325 mg Glucagon () 1 mg IM PRN PRN PRN Reason: Hypoglycemia w/o IV access Magnesium Sulfate 2 gm/ Premix 50 mls @ 25 mls/hr IV .PER PROTOCOL PRN; Protocol PRN Reason: Per Protocol Magnesium Sulfate 4 gm/ Premix 100 mls @ 25 mls/hr IV .PER PROTOCOL PRN; Protocol PRN Reason: Per Protocol Promethazine HCl 12.5 mg/ (Sodium Chloride) 50.5 mls @ 102 mls/hr IV Q6H PRN PRN Reason: Hiccups Last Infusion: 08/15/16 23:34 Dose: Infused Ketorolac Tromethamine (Toradol Inj) 30 mg IM Q6H PRN PRN Reason: Pain Moderate (4-7) Stop: 08/20/16 23:29 Last Admin: 08/16/16 06:12 Dose: 30 mg Levothyroxine Sodium (Synthroid Tab) 50 mcg PO DAILY [facility] Last Admin: 08/16/16 09:37 Dose: 50 mcg Lisinopril (Prinivil) 20 mg PO DAILY [facility] Last Admin: 08/16/16 09:36 Dose: 20 mg Magnesium Hydroxide (Milk Of Magnesia) 30 ml PO Q6H PRN PRN Reason: Constipation Metoclopramide HCl (Reglan Inj) 10 mg IV Q6H PRN PRN Reason: Hiccups Last Admin: 08/15/16 17:41 Dose: 10 mg Metoprolol Succinate (Toprol Xl) 25 mg PO DAILY [facility] Last Admin: 08/16/16 09:36 Dose: 25 mg Morphine Sulfate () 2 mg IV Q2H PRN PRN Reason: Pain Moderate (4-7) Morphine Sulfate () 5 mg IV Q4H PRN PRN Reason: Pain Severe (8-10) Last Admin: 08/15/16 13:33 Dose: 5 mg Non-Formulary Medication (Tadalafil [Cialis]) 5 mg PO DAILY [facility] [id number] Ethyl Esters (Lovaza) 1 gm PO DAILY [facility] Last Admin: 08/16/16 09:36 Dose: 1 gm Ondansetron HCl (Zofran Inj) 4 mg IV Q4H PRN PRN Reason: Nausea/Vomiting Oxycodone/Acetaminophen (Percocet 5-325) 1 tablet PO Q4H PRN PRN Reason: Pain Mild (1-3) Last Admin: 08/16/16 01:29 Dose: 1 tablet Pantoprazole Sodium (Protonix Tab) 40 mg PO DAILY [facility] Last Admin: 08/16/16 09:37 Dose: Not Given Potassium Chloride (K Dur) 20 meq PO .PER PROTOCOL PRN; Protocol PRN Reason: Per Protocol Rosuvastatin Calcium (Crestor) 40 mg PO BEDTIME [facility] Last Admin: 08/15/16 20:23 Dose: 40 mg Zaleplon (Sonata) 5 mg PO BEDTIME PRN PRN Reason: Sleep Exam (Progress Note) - Constitutional Vitals: Period Temp Pulse Resp BP Sys/Storm Pulse Ox Last 24 Hr 96.8 F-97.9 F 81-87 16-20 116-138/69-87 90-97 General appearance: normal weight, no acute distress - Head Head exam: Absent: abrasion, hematoma - Neck Neck exam: Absent: tenderness - Respiratory Respiratory exam: Present: clear to auscultation bilaterally. Absent: accessory muscle use, chest wall tenderness - Cardiovascular Cardiovascular exam: Present: regular rate and rhythm, rubs, other (sternal wound without evidence of dehiscence or infection) - GI/Abdominal GI/Abdominal exam: Present: normal bowel sounds, soft. Absent: distended, tenderness - Extremities Exam Extremities exam: Present: edema (to bilateral lower extremities), other (donor site wounds to bilateral lower extremities without evidence of dehiscence or infection) - Neurological Exam Neurological exam: Present: alert, oriented X3 - Psychiatric Psychiatric exam: Present: normal affect, normal mood - Skin Skin exam: Present: warm, dry Result/EKG - Labs CBC & BMP: 08/16/16 04:10 08/16/16 04:10 Lab Results: I have reviewed the past 24 hour labs Labs: Laboratory Results - last 24 hr 08/13/16 08/14/16 08/14/16 04:16 21:15 22:15 WBC RBC Hgb Hct MCV MCH MCHC RDW Plt Count MPV Neut % (Auto) Lymph % (Auto) Lamar % (Auto) Eos % (Auto) Baso % (Auto) Neut # (Auto) Lymph # (Auto) Lamar # (Auto) Eos # (Auto) Baso # (Auto) Immature Gran % Nucleated RBC % Immature Gran # Nucleated RBCs # Sodium Potassium Chloride Carbon Dioxide Anion Gap BUN Creatinine GFR Calculation BUN/Creatinine Ratio Glucose POC Glucose 165 H 149 H Calculated Osmolality Calcium Magnesium Total Bilirubin Direct Bilirubin Indirect Bilirubin AST ALT Alkaline Phosphatase Total Creatine Kinase CK-MB (CK-2) CK and CKMB Interp Troponin I Total Protein Albumin Globulin Albumin/Globulin Ratio Blood Type A POSITIVE Antibody Screen Negative Crossmatch See Detail 08/14/16 08/15/16 08/15/16 23:17 00:22 02:16 WBC RBC Hgb Hct MCV MCH MCHC RDW Plt Count MPV Neut % (Auto) Lymph % (Auto) Lamar % (Auto) Eos % (Auto) Baso % (Auto) Neut # (Auto) Lymph # (Auto) Lamar # (Auto) Eos # (Auto) Baso # (Auto) Immature Gran % Nucleated RBC % Immature Gran # Nucleated RBCs # Sodium Potassium Chloride Carbon Dioxide Anion Gap BUN Creatinine GFR Calculation BUN/Creatinine Ratio Glucose POC Glucose 158 H 135 H 129 H Calculated Osmolality Calcium Magnesium Total Bilirubin Direct Bilirubin Indirect Bilirubin AST ALT Alkaline Phosphatase Total Creatine Kinase CK-MB (CK-2) CK and CKMB Interp Troponin I Total Protein Albumin Globulin Albumin/Globulin Ratio Blood Type Antibody Screen Crossmatch 08/15/16 08/15/16 08/15/16 03:08 05:29 11:31 WBC RBC Hgb Hct MCV MCH MCHC RDW Plt Count MPV Neut % (Auto) Lymph % (Auto) Lamar % (Auto) Eos % (Auto) Baso % (Auto) Neut # (Auto) Lymph # (Auto) Lamar # (Auto) Eos # (Auto) Baso # (Auto) Immature Gran % Nucleated RBC % Immature Gran # Nucleated RBCs # Sodium Potassium Chloride Carbon Dioxide Anion Gap BUN Creatinine GFR Calculation BUN/Creatinine Ratio Glucose POC Glucose 119 H 109 H Calculated Osmolality Calcium Magnesium Total Bilirubin Direct Bilirubin Indirect Bilirubin AST ALT Alkaline Phosphatase Total Creatine Kinase 1084 H CK-MB (CK-2) 36.0 H D CK and CKMB Interp 3.3 Troponin I 14.300 H Total Protein Albumin Globulin Albumin/Globulin Ratio Blood Type Antibody Screen Crossmatch 08/16/16 08/16/16 04:10 04:10 WBC 14.4 H RBC 3.42 L Hgb 10.2 L Hct 30.5 L MCV 89.2 MCH 30 MCHC 33.4 RDW 14.6 Plt Count 211 D MPV 11.1 Neut % (Auto) 86.5 H Lymph % (Auto) 6.7 L Lamar % (Auto) 6.1 Eos % (Auto) 0.0 Baso % (Auto) 0.1 Neut # (Auto) 12.4 H Lymph # (Auto) 1.0 L Lamar # (Auto) 0.9 H Eos # (Auto) 0.0 Baso # (Auto) 0.0 Immature Gran % 0.6 Nucleated RBC % 0.0 Immature Gran # 0.08 Nucleated RBCs # 0.00 Sodium 142 Potassium 4.5 Chloride 107 Carbon Dioxide 25 Anion Gap 14.5 BUN 34 H D Creatinine 1.20 GFR Calculation 100 BUN/Creatinine Ratio 28.00 H Glucose 213 H POC Glucose Calculated Osmolality 296.1 Calcium 8.4 L Magnesium 2.4 Total Bilirubin 1.40 H Direct Bilirubin 0.2 Indirect Bilirubin 1.2 H AST 50 H ALT 41 Alkaline Phosphatase 79 Total Creatine Kinase 1150 H CK-MB (CK-2) 19.8 H D CK and CKMB Interp 1.7 Troponin I 13.700 H Total Protein 5.9 L Albumin 3.7 Globulin 2.2 L Albumin/Globulin Ratio 1.6 Blood Type Antibody Screen Crossmatch - EKG EKG results: interpreted by me EKG shows: sinus rhythm Quality Measures - VTE Contraindication to Pharmacological VTE Prophylaxis: High Risk of Bleeding Specialty Discharge - Follow Up or Referrals Surinder Dillard Michael, MD, personally performed the services described in this documentation, ascribed by Ofelia Graham RN in my presence, and it is both accurate and complete [id number] .
--- NOTE | 2016-08-16 14:26 | EKG Report ---
Stationary ECG Study [facility] Test Date: 08/16/2016 2:24:43 PM Pat Name: RYAN LEDEZMA Department: Room: 277 Gender: M Manager Payer: LORA : 1975 Requested by: Mario Taylor Order Number: [id number] Reading MD: MARIA A ROBERTS Intervals [place] Rate: 84 P: 50 DE: 162 QRS: 28 QRSD: 103 T: -35 QT: 340 QTc: 382 Interpretive Statements SINUS RHYTHM ABNORMAL ST-T DIFFUSELY Electronically Signed On 08-16-16 16:06:55 VIDEO GAME TECHNICIAN by MARIA A ROBERTS [email or web address]
[2016-08-16] MEDS: ROSUVASTATIN 20 MG TABLET PO SCH (22:26)
[2016-08-17] MEDS: oxyCODONE/ACETAMINOPHEN 5-325 MG TABLET PO PRN (04:51)
[2016-08-17 06:03] LABS: Eosinophils % 0.2 % (0.00-10.9); Hematocrit 29.7 VOL% (42.0-52.0); Hemoglobin 9.9 GM/DL (14.0-18.0); Immature Granulocytes % 0.7 %; Immature Granulocytes Absolute 0.07 #; Lymphocytes # 1.8 10*3/uL (1.4-4.0); Lymphocytes % 18.9 % (21.2-54.2); Mean Corpuscular HGB Conc 33.3 GM/DL (32-36); Mean Corpuscular Hemoglobin 30 PG (27-34); Mean Corpuscular Volume 88.4 FL (87-102); Mean Platelet Volume 11.2 FL (9.6-12.0); Monocytes % 10.1 % (1.7-12.7); Neutrophils # 6.7 10*3/uL (1.4-7.4); Neutrophils % 70.1 % (38.7-73.9); Platelet Count 195 T/CUMM (130-400); Red Blood Count 3.36 MC/CUMM (3.8-5.5); Red Cell Distribution Width 14.3 % (9.3-17.3); White Blood Count 9.5 T/CUMM (4-12)
--- NOTE | 2016-08-17 06:26 | Discharge Summary ---
Hospital Course - Hospital Course Hospital Course: History of present illness: Patient is a 41-year-old man who presented with symptoms of substernal chest discomfort with exertion. He underwent cardiac catheterization demonstrating extensive three-vessel coronary artery disease and was referred for bypass surgery. Past medical history is significant for history of hypertension and cigarette smoking. Past medical history review of systems social history and family history are documented in his admission note. Hospital course: Patient was taken to surgery and four-vessel bypass grafting was carried out without incident. The patient's postoperative course was essentially uncomplicated and he was discharged home on the third postoperative day on discharge medications which are listed below. He is to be seen in follow -up in 1 month. Specialty Discharge - Follow Up or Referrals Follow up with: Waylon Rutledge MD [Physician] - 1 Month Discharge Plan - Discharge Data Condition at Discharge: Stable Discharge Diet: advance to your usual diet Activity: resume usual activities as tolerated Hygiene: no restrictions Weight Bearing at Discharge: full weight bearing Driving: not for (10 days) - Discharge Medications New oxyCODONE/ACETAMINOPHEN 5-325 [Percocet 5-325] 1 tablet PO Q4H PRN #0 tablet PRN Reason: Pain Mild (1-3) Aspirin EC Tab 81 mg PO DAILY tablet Clorazepate [Tranxene] 3.75 mg PO Q6H PRN #0 tablet PRN Reason: Anxiety Metoprolol Succinate Xl [Toprol Xl] 25 mg PO DAILY #30 tablet Rosuvastatin [Crestor] 40 mg PO BEDTIME #30 tablet Continue Esomeprazole Magnesium [Nexium] 22.3 mg PO DAILY [place]-3 Fatty Acids [Fish Oil Concentrate] 1,000 mg PO DAILY Tadalafil [Cialis] 5 mg PO DAILY Lisinopril 20 mg PO DAILY Levothyroxine Tab [Synthroid Tab] 50 mcg PO DAILY Discontinued Aspirin [Ecotrin] 81 mg PO DAILY - Follow Up or Referral - Forms/Instructions Instructions: Heart Healthy Diet (GEN), Cigarette Smoking and Your Health, Cyanide Pot Hardener (GEN), Coronary Artery Bypass Graft, Cyanide Pot Hardener (GEN), Sternal Precautions (GEN) Exam - Constitutional Vitals: Period Temp Pulse Resp BP Sys/Storm Pulse Ox Last 24 Hr 97.4 F-98.8 F 86-92 16-20 116-143/69-101 92-98 Discharge Results Procedures and tests throughout hospitalization: Pending Orders 08/13/16 04:16 Fresh Frozen Plasma IN AM Red Blood Cells Leuko Red IN AM Single Donor Platelets IN AM Type and Screen IN AM 08/17/16 04:00 XR chest 1V portable IN AM 08/17/16 05:29 Bilirubin Profile Adult IN AM Comprehensive Metabolic Panel IN AM Hepatic (Liver) Panel IN AM Magnesium IN AM Troponin,CKMB & Ck Total IN AM 08/19/16 04:00 XR chest 2V IN AM Bilirubin Profile Adult IN AM Comp Blood Count Auto Diff IN AM Comprehensive Metabolic Panel IN AM Hepatic (Liver) Panel IN AM Magnesium IN AM Troponin,CKMB & Ck Total IN AM 08/20/16 04:00 XR chest 2V IN AM Bilirubin Profile Adult IN AM Comp Blood Count Auto Diff IN AM Comprehensive Metabolic Panel IN AM Hepatic (Liver) Panel IN AM Magnesium IN AM Troponin,CKMB & Ck Total IN AM Labs on day of discharge: Labs from last 24 hours 08/17/16 05:29 WBC 9.5 D RBC 3.36 L Hgb 9.9 L Hct 29.7 L MCV 88.4 MCH 30 MCHC 33.3 RDW 14.3 Plt Count 195 MPV 11.2 Neut % (Auto) 70.1 Lymph % (Auto) 18.9 L [place] % (Auto) 10.1 Eos % (Auto) 0.2 Baso % (Auto) 0.0 Neut # (Auto) 6.7 Lymph # (Auto) 1.8 [place] # (Auto) 1.0 H Eos # (Auto) 0.0 Baso # (Auto) 0.0 Immature Gran % 0.7 Nucleated RBC % 0.0 Immature Gran # 0.07 Nucleated RBCs # 0.00 DS: Provider Date of admission: 08/12/16 08:41 Attending physician on admission: Waylon Rutledge MD Consults: 08/15/16 06:24 Consult to Cardiac Rehabilitation [CONS] Routine Reason for Cardiac Rehabilitation: Other Consult Comment: Post CABG/heart surgery Consult to Diabetes Center, Educator [CONS] Routine Reason for Histopathologist: Diabetes Education Initial Insulin Education Consult Comment: insulin education Consult to Dietitian [CONS] Routine Reason for Dietitian: Dietary Consult Consult Comment: Cardiac, low salt, low cholesterol diet Consult to Physical Therapy [CONS] Routine Reason for Physical Therapy: Other Consult Comment: CV Rehab Consult to Physician [CONS] Routine Comment: Management of diabetes Consulting Provider: Consult to Specialist Group: Hospitalist Discharging clinician: Waylon Rutledge MD Expected date of discharge: 08/17/16
[2016-08-17 06:43] LABS: Alanine Aminotransferase 71 U/L (16-61); Albumin 3.3 G/DL (3.4-5.0); Alkaline Phosphatase 88 U/L (45-117); Aspartate Amino Transferase 44 U/L (0-37); Bilirubin,Direct 0.2 MG/DL (0.0-0.20); Bilirubin,Indirect 0.7 MG/DL (0.0-1.0); Blood Urea Nitrogen 37 MG/DL (7-18); Calcium 8.1 MG/DL (8.5-10.1); Glucose 100 MG/DL (74-106); Magnesium 2.3 MG/DL (1.8-2.4); Osmolality,Calculated 298.6 MOS/KG (273-304); Sodium 146 MMOL/L (136-145); Total Protein 5.6 G/DL (6.4-8.3)
--- NOTE | 2016-08-17 07:29 | EKG Report ---
Stationary ECG Study [facility] Test Date: 08/17/2016 7:27:54 AM Pat Name: RYAN LEDEZMA Department: Room: 277 Gender: M Comfort Advisor: LORA : 1975 Requested by: Mario Taylor Order Number: [id number] Reading MD: VASHTI SHEARER Intervals [place] Rate: 86 P: 45 NC: 159 QRS: 27 QRSD: 98 T: -41 QT: 340 QTc: 383 Interpretive Statements SINUS RHYTHM POSSIBLE INFERIOR MYOCARDIAL INFARCTION, OF INDETERMINATE AGE WITH POSTERIOR EXTENSION MODERATE T-WAVE ABNORMALITY, CONSIDER ANTEROLATERAL ISCHEMIA Electronically Signed On 08-17-16 20:42:16 [employer]STITCHER ZIGZ[employer] by VASHTI SHEARER [email or web address]
[2016-08-17 07:40] VITALS: BP 149/70
--- NOTE | 2016-08-17 07:44 | XRay Report ---
XR chest 1V portable Indication: SOB Comparison: Chest x-ray dated August 16, 2016 Technique: Single frontal view of the chest Findings: Cardiomediastinal silhouette is stable in configuration status post sternotomy. Continued hazy opacification of the bilateral lower lungs which may reflect atelectasis/consolidation and/or layering pleural fluid. Continued linear atelectasis within the bilateral infrahilar regions. Osseous and surrounding soft tissue structures appear grossly unchanged. IMPRESSION: No significant interval change. PROCEDURE INTERPRETED AT [facility] DEPARTMENT OF RADIOLOGY Final Report Signed by: Dr Karan Gallagher
[2016-08-17] MEDS: OMEGA 3 ACID ETHYL ESTERS 1 GM CAPSULE PO SCH (08:43)
[2016-08-17] MEDS: DOCUSATE SODIUM 100 MG CAPSULE PO SCH (08:43)
[2016-08-17] MEDS: FERROUS SULFATE 325 MG TABLET PO SCH (08:43)
[2016-08-17] MEDS: LISINOPRIL 20 MG TABLET PO SCH (08:43)
[2016-08-17] MEDS: ASPIRIN EC 81 MG TABLET PO SCH (08:43)
[2016-08-17] MEDS: METOPROLOL SUCCINATE XL 25 MG TABLET PO SCH (08:43)
[2016-08-17] MEDS: LEVOTHYROXINE 50 MCG TABLET PO SCH (08:43)
[2016-08-17] MEDS: CHLORHEXIDINE 0.12% ORAL RINSE 60 ML BOTTLE SWISH/SPIT SCH (08:44)
[2016-08-17] MEDS: PANTOPRAZOLE 40 MG TABLET PO SCH (08:46)
== END 2016-08-17 09:30 | disposition home or self-care (01) | DRG 234 ==
LOC: N.CL 12:43 → N.TELEN 17:28 → N.CVR 08-14 10:40 → N.ICU 08-15 08:41 → N.TELES 08-15 15:38
PROC: CLCCHCL (ICD-10-PCS; 2016-08-11 14:15)

== ENCOUNTER 2018-02-19 04:14 | Observation (INO) ==
[2018-02-19 05:08] LABS: Basophils # 0.1 10*3/uL (0.0-0.2); Basophils % 0.7 % (0.0-0.8); Eosinophils # 0.1 10*3/uL (0.0-0.87); Hematocrit 44.1 VOL% (42.0-52.0); Hemoglobin 15.2 GM/DL (14.0-18.0); Immature Granulocytes % 0.8 %; Immature Granulocytes Absolute 0.06 #; Lymphocytes # 1.3 10*3/uL (1.4-4.0); Lymphocytes % 17.5 % (21.2-54.2); Mean Corpuscular HGB Conc 34.5 GM/DL (32-36); Mean Corpuscular Hemoglobin 30 PG (27-34); Mean Corpuscular Volume 86.6 FL (87-102); Mean Platelet Volume 10.1 FL (9.6-12.0); Monocytes # 0.7 10*3/uL (0.11-0.8); Monocytes % 9.2 % (1.7-12.7); Neutrophils # 5.1 10*3/uL (1.4-7.4); Neutrophils % 70.8 % (38.7-73.9); Platelet Count 236 T/CUMM (130-400); Red Blood Count 5.09 MC/CUMM (3.8-5.5); Red Cell Distribution Width 14.3 % (9.3-17.3); White Blood Count 7.1 T/CUMM (4-12)
[2018-02-19] MEDS ORDERED: hydrALAZINE 20 MG/1 ML VIAL IV STA (05:22)
[2018-02-19] MEDS ORDERED: FUROSEMIDE 40 MG/4 ML VIAL IV STA (05:22)
[2018-02-19 05:44] LABS: Albumin 3.7 G/DL (3.4-5.0); Bilirubin,Total 0.6 MG/DL (0.2-1.0); Calcium 8.5 MG/DL (8.5-10.1); Osmolality,Calculated 278.5 MOS/KG (273-304); Potassium 3.9 MMOL/L (3.5-5.1); Total Protein 7.3 G/DL (6.4-8.3)
[2018-02-19 05:45] LABS: Troponin I Only 0.114 NG/ML (0.00-0.045)
[2018-02-19] MEDS ORDERED: TICAGRELOR 90 MG TABLET PO ONE (08:45)
[2018-02-19] MEDS ORDERED: hydrALAZINE 20 MG/1 ML VIAL IV PRN (08:45)
[2018-02-19] MEDS: ROSUVASTATIN 20 MG TABLET PO SCH (08:47)
[2018-02-19] MEDS ORDERED: LOSARTAN 50 MG TABLET PO SCH (09:00)
[2018-02-19] MEDS ORDERED: TICAGRELOR 90 MG TABLET PO SCH (09:00)
[2018-02-19] MEDS: CARVEDILOL 25 MG TABLET PO SCH ×2 (09:21→21:01)
[2018-02-19] MEDS ORDERED: IBUPROFEN 400 MG TABLET PO PRN (10:39)
[2018-02-19] MEDS: PANTOPRAZOLE 40 MG TABLET PO SCH (10:54)
[2018-02-19 11:50] LABS: Troponin I Only 0.101 NG/ML (0.00-0.045)
[2018-02-19] MEDS: TICAGRELOR 90 MG TABLET PO SCH ×2 (13:54→21:01)
[2018-02-19] MEDS ORDERED: ONDANSETRON 4 MG/2 ML VIAL IV PRN (14:15)
[2018-02-19 16:01] LABS: Hepatitis A Ab IgM Result Negative (Negative); Hepatitis B Core IgM Quant < 0.05 Index; Hepatitis B Core IgM Result Negative (Negative); Hepatitis B Surface Ag Quant < 0.10 Index; Hepatitis B Surface Ag Result Negative (Negative); Hepatitis C Virus Ab Quant 0.02 Index; Hepatitis C Virus Ab Result Negative (Negative)
[2018-02-19] MEDS ORDERED: diphenhydrAMINE CAP 25 MG CAPSULE PO PRN (18:01)
[2018-02-19] MEDS ORDERED: MAGNESIUM HYDROXIDE SUSP 30 ML UDCUP PO PRN (18:01)
[2018-02-20 04:23] LABS: Basophils # 0.1 10*3/uL (0.0-0.2); Basophils % 0.7 % (0.0-0.8); Eosinophils # 0.1 10*3/uL (0.0-0.87); Hematocrit 43.4 VOL% (42.0-52.0); Hemoglobin 14.9 GM/DL (14.0-18.0); Immature Granulocytes % 0.7 %; Immature Granulocytes Absolute 0.05 #; Lymphocytes # 1.1 10*3/uL (1.4-4.0); Mean Corpuscular HGB Conc 34.3 GM/DL (32-36); Mean Corpuscular Hemoglobin 30 PG (27-34); Mean Corpuscular Volume 87.1 FL (87-102); Mean Platelet Volume 10.7 FL (9.6-12.0); Monocytes # 0.6 10*3/uL (0.11-0.8); Monocytes % 8.9 % (1.7-12.7); Neutrophils # 5.1 10*3/uL (1.4-7.4); Neutrophils % 72.7 % (38.7-73.9); Platelet Count 247 T/CUMM (130-400); Red Blood Count 4.98 MC/CUMM (3.8-5.5); Red Cell Distribution Width 14.6 % (9.3-17.3)
[2018-02-20 05:06] LABS: Calcium 9.2 MG/DL (8.5-10.1); Osmolality,Calculated 281.7 MOS/KG (273-304); Potassium 3.4 MMOL/L (3.5-5.1)
[2018-02-20 05:10] LABS: Albumin 3.4 G/DL (3.4-5.0); Bilirubin,Direct 0.14 MG/DL (0.0-0.20); Bilirubin,Indirect 0.8 MG/DL (0.0-1.0); Bilirubin,Total 0.9 MG/DL (0.2-1.0); Risk Ratio 6.67; Total Protein 6.5 G/DL (6.4-8.3); VLDL CHOLESTEROL 44.2 MG/DL
[2018-02-20] MEDS: LEVOTHYROXINE 50 MCG TABLET PO SCH ×2 (06:06→09:59)
[2018-02-20] MEDS ORDERED: POTASSIUM CHLORIDE 20 MEQ TABLET PO ONE (06:53)
[2018-02-20] MEDS ORDERED: FUROSEMIDE 40 MG/4 ML VIAL IV SCH (09:00)
[2018-02-20 09:15] LABS: Ferritin 60.2 ng/ml (26-388)
[2018-02-20] MEDS: ROSUVASTATIN 20 MG TABLET PO SCH (09:58)
[2018-02-20] MEDS: CARVEDILOL 25 MG TABLET PO SCH ×2 (09:58→21:22)
[2018-02-20] MEDS: ASPIRIN EC 81 MG TABLET PO SCH (09:58)
[2018-02-20] MEDS: PANTOPRAZOLE 40 MG TABLET PO SCH (09:59)
[2018-02-20] MEDS: OMEGA 3 ACID ETHYL ESTERS 1 GM CAPSULE PO SCH (09:59)
[2018-02-20] MEDS: SODIUM CHLORIDE 0.9% 1,000 ML IV SCH (10:08)
[2018-02-20] MEDS: TICAGRELOR 90 MG TABLET PO SCH ×2 (10:17→21:23)
[2018-02-21 04:31] LABS: Basophils % 0.6 % (0.0-0.8); Eosinophils # 0.1 10*3/uL (0.0-0.87); Eosinophils % 1.1 % (0.00-10.9); Hematocrit 41.7 VOL% (42.0-52.0); Immature Granulocytes % 0.8 %; Immature Granulocytes Absolute 0.05 #; Lymphocytes # 1.4 10*3/uL (1.4-4.0); Lymphocytes % 20.8 % (21.2-54.2); Mean Corpuscular HGB Conc 33.6 GM/DL (32-36); Mean Corpuscular Hemoglobin 30 PG (27-34); Mean Platelet Volume 10.6 FL (9.6-12.0); Monocytes # 0.6 10*3/uL (0.11-0.8); Monocytes % 9.6 % (1.7-12.7); Neutrophils # 4.4 10*3/uL (1.4-7.4); Neutrophils % 67.1 % (38.7-73.9); Platelet Count 220 T/CUMM (130-400); Red Blood Count 4.74 MC/CUMM (3.8-5.5); Red Cell Distribution Width 14.6 % (9.3-17.3); White Blood Count 6.5 T/CUMM (4-12)
[2018-02-21 05:05] LABS: Calcium 8.6 MG/DL (8.5-10.1); Osmolality,Calculated 289.1 MOS/KG (273-304); Potassium 4.2 MMOL/L (3.5-5.1)
[2018-02-21] MEDS: LEVOTHYROXINE 50 MCG TABLET PO SCH (06:15)
[2018-02-21] MEDS: SODIUM CHLORIDE 0.9% 1,000 ML IV SCH (06:15)
[2018-02-21] MEDS: ROSUVASTATIN 20 MG TABLET PO SCH (08:09)
[2018-02-21] MEDS: CARVEDILOL 25 MG TABLET PO SCH (08:10)
[2018-02-21] MEDS: OMEGA 3 ACID ETHYL ESTERS 1 GM CAPSULE PO SCH (08:10)
[2018-02-21] MEDS: TICAGRELOR 90 MG TABLET PO SCH (08:10)
[2018-02-21] MEDS: PANTOPRAZOLE 40 MG TABLET PO SCH (08:10)
[2018-02-21] MEDS: ASPIRIN EC 81 MG TABLET PO SCH (08:10)
[2018-02-21 08:14] VITALS: BP 113/71
== END 2018-02-21 08:35 | disposition home or self-care (01) ==
LOC: N.ED 04:14 → INTOOBSV 06:06 → N.EDINP 06:06 → N.2W 08:33 → N.TELES 12:37
PROVIDERS: ADMIT Internal Medicine Interventional Cardiology; ATTEND Internal Medicine Interventional Cardiology